=== PATIENT | female | born 1935 | race Caucasian/White ===

== ENCOUNTER → 2020-10-30 09:46 | Outpatient (BNVA) | payer MEDICARE, SELFPAY | PROVIDERS: PCP Internal Medicine; Visit Provider Internal Medicine Cardiovascular Disease | DX: I47.1 Supraventricular tachycardia (principal); I77.9 Disorder of arteries and arterioles, unspecified; R06.02 Shortness of breath | CPT/HCPCS: 93005; 99212 ==

== ENCOUNTER 2021-02-25 10:18 | Outpatient (REF) | payer MEDICARE, SELFPAY ==
[2021-02-25 12:40] LABS: Alanine Aminotransferase 14 U/L (0-31); Albumin Level 4.6 g/dL (3.5-5.0); Alkaline Phosphatase 103 U/L (39-117); Aspartate Amino Transferase 22 U/L (5-31); Bilirubin Direct 0.4 mg/dL (0.0-0.5); Cholesterol 173 mg/dL; HDL Cholesterol 95 mg/dL; LDL Cholesterol Calculated 62 mg/dl; Total Protein 7.3 g/dL (6.5-8.0); Triglycerides 80 mg/dL
[2021-02-25 13:30] LABS: Reflex LDLD? No
== END 2021-02-25 10:19 | disposition home or self-care (01) ==
LOC: HO.LNP 10:18
PROVIDERS: Visit Provider Internal Medicine
DX: E78.00 Pure hypercholesterolemia, unspecified (principal)
CPT/HCPCS: 80061; 80076

== ENCOUNTER 2021-03-28 08:43 | Outpatient (REF) | payer MEDICARE, SELFPAY ==
--- NOTE | ~2021-03-28 | CT_ITS ---
EXAMINATION: CT CHEST WITHOUT CONTRAST CLINICAL INFORMATION: Pulmonary nodule. COMPARISON: CT chest 11/14/2019, 04/20/2019 TECHNIQUE: Multidetector volumetric CT imaging of the chest was done. Axial MIP volume rendering provided. Sagittal and coronal reformatted images were obtained. This CT examination was performed using dose optimization techniques as appropriate, variously including the following: *Automated exposure control *Adjustment of mA and/or kV according to patient size (this includes techniques or standardized protocols for targeted exams where dose is matched to indication/reason for exam; i.e. extremities or head) *Use of iterative reconstruction technique DLP: 96 mGy-cm FINDINGS: DATA SME: The lungs are hyperinflated with no large consolidation seen. LUNGS: Hyperinflated lungs with multiple pulmonary nodules and tree-in-bud appearance in the right lower lobe superior segment and posterior segment right lower lobe. The largest nodule in the right upper lobe measures 5 mm on image 182/8, previously measured 5 mm on axial image 165/5, 7 mm pleural-based nodule left upper lobe axial image 231/8 is new. A 1 cm tubular density right upper lobe anterior segment image 25/4 appears stable. A 4 mm nodule right middle lobe axial image 29/4. Branching nodular pattern in the lingula, both lower lobes, likely intrabronchial debris or mucoid impaction is stable. There are tree in but didn't pattern in the left lower lobe superior segment and right upper lobe, new. MEDIASTINUM: The thyroid lobes are symmetrical and normal. The central trachea and the bronchi are widely patent. The heart size and the great vessels are normal caliber. There are coronary artery calcifications present. No pericardial effusion seen. PLEURA: There is no pleural effusion. No pleural mass or thickening. AXILLA: There are small bilateral axillary 1 cm nodules, similar to previous study. The chest wall is unremarkable. UPPER ABDOMEN: Visualized liver, spleen, pancreas, and bilateral adrenal glands are unremarkable. OSSEOUS STRUCTURES: Exaggerated thoracic kyphosis. The vertebral heights, alignment and disc heights are normal. There is mild ventral spondylosis throughout dorsal spine. No lytic process seen. CT/CT chest wo con IMPRESSION: Bilateral pulmonary nodules, tubular branching, intrabronchial debris, and few ill-defined patchy reticular interstitial changes in both lungs are again noted. The tree-in-bud branching patterns in the left lower lobe superior segment and right upper lobe appear new. No new nodules seen. Clustered nodules in the right middle lobe seen previously have resolved. Again, there is waxing and waning nodules and tree-in-bud appearance likely from ongoing inflammatory or infectious etiology. There is no large consolidation or mass. Reactionary lymph nodes in the axilla are stable. Recommend continued followup.
== END 2021-03-28 08:44 | disposition home or self-care (01) ==
LOC: HO.CT 08:43
PROVIDERS: Visit Provider Internal Medicine
DX: R91.1 Solitary pulmonary nodule (principal)
CPT/HCPCS: 71250

== ENCOUNTER 2021-07-15 14:06 | Outpatient (REF) | payer MEDICARE, SELFPAY ==
[2021-07-15 14:31] LABS: Appearance Urine CLOUDY; Color Urine YELLOW; Glucose Urine UA NEG (NEG); Leukocyte Esterase Urine 2+ (NEG); Nitrite Urine POS (NEG); Urine Blood TRACE (NEG); Urine Ketones NEG (NEG); Urine Protein 1+ MG/DL (NEG-TRACE)
[2021-07-15 15:09] LABS: Bacteria Urine 3+ /LPF; Squamous Epithelial Cell Urine TRACE /LPF; WBC Urine TNTC /HPF (0-4)
[2021-07-15 15:11] LABS: RBC Urine 0-2 /HPF (0)
== END 2021-07-15 14:07 | disposition home or self-care (01) ==
LOC: HO.LNP 14:06
PROVIDERS: Visit Provider Internal Medicine
DX: R35.1 Nocturia (principal)
CPT/HCPCS: 81001; 87086; 87088; 87186

== ENCOUNTER 2021-07-29 07:55 | Day surgery (SDC) | payer MEDICARE, SELFPAY ==
[2021-07-23 10:50] VITALS: BMI 23.8
--- NOTE | 2021-07-24 08:36 | MHC.SHP ---
Pre-Procedural Eval Section A Date of Service: 07/24/21 The patient is an INPATIENT: No The History & Physical has been completed within 30 days and I have reviewed it.: Yes Section B Chief Complaint: cataract Allergies: Allergies Allergy/AdvReac Type Severity Reaction Status Date / Time clindamycin Allergy Unknown Unknown Verified 07/23/21 10:22 FRUITS WITH PITS Allergy Unknown UNKNOWN Uncoded 07/12/20 15:28 Plan Diagnosis/Plan: Unchanged I have reviewed the history and physical and performed a pertinent physical examination on my patient. No changes have occurred unless specified.
[2021-07-29 08:01] VITALS: BP 121/56; PULSE 59; RESP 16; TEMP 36.3; O2SAT 96
[2021-07-29] MEDS: Tropicamide 1 % Ophth Sol 3 ML BTL 1 DROP EYE-RIGHT ×3 (08:27→08:34)
[2021-07-29] MEDS: Phenylephrine HCL 2.5% Oph SoL 2 ML BOTTLE 1 DROP EYE-RIGHT ×3 (08:27→08:34)
[2021-07-29] MEDS: Tetracaine HCl/PF 0.5% Oph Sol 4 ML DROPS 1 DROP EYE-RIGHT (08:27)
--- NOTE | 2021-07-29 09:12 | HO.ANESPROP2 ---
[facility] Active Problems Active Problems: All Active Problems (Updated 07/23/21 @ 10:53 by Beba La RN) SOB (shortness of breath) (Acute) Supraventricular tachycardia (Acute) Bilateral carotid artery disease (Acute) Hyperlipidemia (Acute) Past Medical History Medical History Asthma Bilateral carotid artery disease COPD (chronic obstructive pulmonary disease) COVID-19 vaccine series completed Hyperlipidemia Supraventricular tachycardia Family History Family History Father No problems noted. Mother No problems noted. Family history of problems with anesthesia: No Surgical History Surgical History H/O colonoscopy History of bladder surgery History of esophagogastroduodenoscopy (EGD) History of hip surgery Hx of cone biopsy of cervix History of Problems with Anesthesia: No Social History Social History Are you a primary manager intensive care to a significant other at home: No Do you presently have visiting nurse or other home services: No Patient Tobacco Use Status: Never used Tobacco Use of substances other than those prescribed or required for medical reasons: No Have you been hit, kicked, punched, or otherwise hurt by someone within the past year? If so, by whom?: No Are you DNR?: No Advance Directives on File: No Recently lost weight without trying: No Eating poorly because of decreased appetite: No Nutrition Risks: Surgical patient >75years Poor oral hygiene: No Meds Allergies Allergy/AdvReac Type Severity Reaction Status Date / Time clindamycin Allergy Unknown Unknown Verified 07/23/21 10:22 FRUITS WITH PITS Allergy Unknown UNKNOWN Uncoded 07/12/20 15:28 Active Medications: Current Medications Lactated Ringer's (Lr) 500 mls @ 20 mls/hr IVCONT .Q24H STEPH Povidone Iodine (Povidone Iodine 5 % Ophth Soln 30 Ml Bottle) 1 appl EYE-RIGHT PREOP PRN PRN Reason: Pre-Op Surgical Implant Prophy Home Medications Medication Instructions Recorded Confirmed Last Taken Type albuterol sulfate 90 mcg/actuation 2 inh INHALATION Q4-6H PRN 10/30/20 07/23/21 Unknown History breath activated powder inhaler aspirin 81 mg tablet,delayed 81 mg PO DAILY 10/30/20 07/23/21 Unknown History release (Adult Low Dose Aspirin) fluticasone propionate 220 2 puff INHALATION BID 10/30/20 07/23/21 Unknown History mcg/actuation HFA aerosol inhaler cholecalciferol (vitamin D3) 25 25 mcg PO DAILY 07/23/21 07/23/21 Unknown History mcg (1,000 unit) capsule (Vitamin D3) Exam Exam Date and Time: July 29, 2021 0912 Height,Weight and Vital Signs: Height 4 ft 11 in Weight 53.524 kg Last Vital Signs Temp 97.4 F 07/29/21 08:01 Pulse 59 07/29/21 08:01 Resp 16 07/29/21 08:01 BP 121/56 L 07/29/21 08:01 Pulse Ox 96 07/29/21 08:01 Airway Mallampati Class: II TM Dist: >3cm Neck ROM: Limited Assessment and Plan Assessment Anesthesia Assessment: Anesthesia Plan Discussed and Chart Reviewed Final Anesthetic Review Family History of Problems with Anesthesia: No History of Problems with Anesthesia: No NPO: Yes ASA Class: III Final Preanesthetic Review: No Changes in Pt Med Stat, Meds/Allgs Chart Reviewed, Consent Obtained/Reviewed and Anes Risks/Benef Reviewed Patient Risk: Intermediate Procedure Risk: Low Assessment/Block/Sedation in SS: Assess/Block/Sedation-SS Anesthetic Plan Anesthetic Plan: MAC: Disposition: Standard PACU
--- NOTE | 2021-07-29 09:24 | HO.PNOPHT ---
Ophthalmology Procedure Procedure Date of Service: 07/29/21 Ophthalmology Viscoelastic: Healon Duet Dual Pack Pro Ophthalmology Lenses: TECNIS [id number] (19.5) Procedure Notes: PREOPERATIVE DIAGNOSIS: Decreased visual acuity right eye secondary to cataract POSTOPERATIVE DIAGNOSIS: Same PROCEDURE: Right cataract extraction with intraocular lens insertion SURGEON: Avinash Reese M.D. ANESTHESIA: Topical/MAC ESTIMATED BLOOD LOSS: None COMPLICATIONS: None After obtaining informed consent, the patient was brought to the operating room suite and placed in the supine position. After adequate sedation per anesthesia, topical drops of Tetracaine were given to the right eye. The eye was then prepped and draped in the usual sterile fashion. The operating room microscope was then positioned over the operative eye and a lid speculum placed. A paracentesis was created. Viscoelastic was then instilled into the anterior chamber. A three plane incision was then created temporally, utilizing a 2.85 mm keratome. Capsulotomy forceps were then utilized to create a circular tear capsulotomy. Hydrodissection and hydrodelineation were carried out until adequate mobilization of the nucleus occurred. Phacoemulsification was then utilized to remove the dense central nucleus followed by removal of the cortical material utilizing the automated aspiration irrigation unit. Viscoelastic was instilled into the posterior capsular bag followed by placement of a posterior chamber intraocular lens without difficulty. The residual Viscoelastic was then removed utilizing the automated IA machine. The wound was checked and found to be watertight. The patient tolerated the procedure well and the lid speculum was removed. Intracameral injection of Vigamox 0.1 mL followed by a subtenon injection of Kenalog-40 0.2 mL were administered. The patient will be seen in the a.m.
[2021-07-29 09:45] VITALS: BP 141/51; PULSE 49; RESP 17; TEMP 36.2; O2SAT 99
== END 2021-07-29 09:59 | disposition home or self-care (01) ==
PROVIDERS: PCP Internal Medicine; Visit Provider Ophthalmology
PROC: (CPT 66985; principal; 2021-07-29 09:30)
DX: H25.11 Age-related nuclear cataract, right eye (principal); H52.4 Presbyopia; H40.013 Open angle with borderline findings, low risk, bilateral; J44.9 Chronic obstructive pulmonary disease, unspecified; I77.9 Disorder of arteries and arterioles, unspecified; K21.9 Gastro-esophageal reflux disease without esophagitis; E78.00 Pure hypercholesterolemia, unspecified; Z79.51 Long term (current) use of inhaled steroids; Z79.82 Long term (current) use of aspirin; Z79.899 Other long term (current) drug therapy
CPT/HCPCS: 66984; J3010; J3300; V2632

== ENCOUNTER 2021-08-02 10:25 | Outpatient (REF) | payer MEDICARE, SELFPAY ==
[2021-08-02 11:00] LABS: Appearance Urine CLEAR; Color Urine YELLOW; Glucose Urine UA NEG (NEG); Leukocyte Esterase Urine NEG (NEG); Nitrite Urine NEG (NEG); Specific Gravity - Urine 1.025 (1.005-1.025); Urine Blood NEG (NEG); Urine Ketones NEG (NEG); Urine Protein NEG (NEG-TRACE)
== END 2021-08-02 10:26 | disposition home or self-care (01) ==
LOC: HO.LNP 10:25
PROVIDERS: Visit Provider Internal Medicine
DX: N39.0 Urinary tract infection, site not specified (principal)
CPT/HCPCS: 81003; 87086

== ENCOUNTER 2021-08-12 08:40 | Day surgery (SDC) | payer MEDICARE, SELFPAY ==
[2021-07-23 10:55] VITALS: BMI 23.8
--- NOTE | 2021-08-07 13:21 | MHC.SHP ---
Pre-Procedural Eval Section A Date of Service: 08/07/21 The patient is an INPATIENT: No Changes since office visit: No Cold of Flu in the past 2 weeks, No New Medical Problems, No Changes in Medication and No Patient answered all questions The History & Physical has been completed within 30 days and I have reviewed it.: Yes Section B Chief Complaint: cataract Allergies: Allergies Allergy/AdvReac Type Severity Reaction Status Date / Time clindamycin Allergy Unknown Unknown Verified 07/23/21 10:22 FRUITS WITH PITS Allergy Unknown UNKNOWN Uncoded 07/12/20 15:28 Plan Diagnosis/Plan: Unchanged I have reviewed the history and physical and performed a pertinent physical examination on my patient. No changes have occurred unless specified.
--- NOTE | 2021-08-09 10:01 | P.CONAN_ITS ---
Documented by User: Samira Carrillo NP 08/09/21 10:07 HPI - Anesthesia Eval Consult details Narrative: 86yo F for Left Cataract Extraction IOL Insertion PCP cleared Right Eye 07/29/21 with MAC: Fent 50 PMFSH Active Problems Active Problems: All Active Problems (Updated 07/23/21 @ 10:53 by Beba La RN) SOB (shortness of breath) (Acute) Supraventricular tachycardia (Acute) Bilateral carotid artery disease (Acute) Hyperlipidemia (Acute) Past Medical History Medical History Asthma Bilateral carotid artery disease COPD (chronic obstructive pulmonary disease) COVID-19 vaccine series completed Hyperlipidemia Supraventricular tachycardia Family History Family History Father No problems noted. Mother No problems noted. Family history of problems with anesthesia: No Surgical History Surgical History H/O colonoscopy History of bladder surgery History of esophagogastroduodenoscopy (EGD) History of hip surgery Hx of cone biopsy of cervix History of Problems with Anesthesia: No Social History Social History Are you a primary critical care nurse practitioner to a significant other at home: No Do you presently have visiting nurse or other home services: No Patient Tobacco Use Status: Never used Tobacco Use of substances other than those prescribed or required for medical reasons: No Have you been hit, kicked, punched, or otherwise hurt by someone within the past year? If so, by whom?: No Are you DNR?: No Advance Directives on File: No Recently lost weight without trying: No Eating poorly because of decreased appetite: No Nutrition Risks: Surgical patient >75years Poor oral hygiene: No Meds Allergies Allergy/AdvReac Type Severity Reaction Status Date / Time clindamycin Allergy Unknown Unknown Verified 07/23/21 10:22 FRUITS WITH PITS Allergy Unknown UNKNOWN Uncoded 07/12/20 15:28 Home Medications Medication Instructions Recorded Confirmed Last Taken Type albuterol sulfate 90 mcg/actuation 2 inh INHALATION Q4-6H PRN 10/30/20 07/23/21 Unknown History breath activated powder inhaler aspirin 81 mg tablet,delayed 81 mg PO DAILY 10/30/20 07/23/21 Unknown History release (Adult Low Dose Aspirin) fluticasone propionate 220 2 puff INHALATION BID 10/30/20 07/23/21 Unknown History mcg/actuation HFA aerosol inhaler cholecalciferol (vitamin D3) 25 25 mcg PO DAILY 07/23/21 07/23/21 Unknown History mcg (1,000 unit) capsule (Vitamin D3) Exam Exam Date and Time: August 09, 2021 1001 Height,Weight and Vital Signs: Height 4 ft 11 in Weight 53.524 kg Narrative Narrative: EKG 10/2020 NSR @ 62 Assessment and Plan Assessment Anesthesia Assessment: Chart Reviewed Final Anesthetic Review Family History of Problems with Anesthesia: No History of Problems with Anesthesia: No Documented by User: Hunter Conteh MD 08/12/21 10:22 [facility] Past Medical History Medical History Asthma Bilateral carotid artery disease COPD (chronic obstructive pulmonary disease) COVID-19 vaccine series completed Hyperlipidemia Supraventricular tachycardia Family History Family History Father No problems noted. Mother No problems noted. Surgical History Surgical History H/O colonoscopy History of bladder surgery History of esophagogastroduodenoscopy (EGD) History of hip surgery Hx of cone biopsy of cervix Social History Social History Are you a primary critical care nurse practitioner to a significant other at home: No Do you presently have visiting nurse or other home services: No Patient Tobacco Use Status: Never used Tobacco Use of substances other than those prescribed or required for medical reasons: No Have you been hit, kicked, punched, or otherwise hurt by someone within the past year? If so, by whom?: No Are you DNR?: No Advance Directives on File: No Recently lost weight without trying: No Eating poorly because of decreased appetite: No Nutrition Risks: Surgical patient >75years Poor oral hygiene: No Meds Allergies Allergy/AdvReac Type Severity Reaction Status Date / Time clindamycin Allergy Unknown Unknown Verified 07/23/21 10:22 FRUITS WITH PITS Allergy Unknown UNKNOWN Uncoded 07/12/20 15:28 Home Medications Medication Instructions Recorded Confirmed Last Taken Type albuterol sulfate 90 mcg/actuation 2 inh INHALATION Q4-6H PRN 10/30/20 07/23/21 Unknown History breath activated powder inhaler aspirin 81 mg tablet,delayed 81 mg PO DAILY 10/30/20 07/23/21 Unknown History release (Adult Low Dose Aspirin) fluticasone propionate 220 2 puff INHALATION BID 10/30/20 07/23/21 Unknown History mcg/actuation HFA aerosol inhaler cholecalciferol (vitamin D3) 25 25 mcg PO DAILY 07/23/21 07/23/21 Unknown History mcg (1,000 unit) capsule (Vitamin D3) Exam Airway Mallampati Class: II TM Dist: >3cm Neck ROM: Full Loose/Missing/Broken Teeth: Yes Heart: [id number] Lungs: cta b/l Assessment and Plan Final Anesthetic Review NPO: Yes ASA Class: III Final Preanesthetic Review: No Changes in Pt Med Stat, Meds/Allgs Chart Reviewed, Consent Obtained/Reviewed and Anes Risks/Benef Reviewed Patient Risk: Intermediate Procedure Risk: Low Assessment/Block/Sedation in SS: Assess/Block/Sedation-SS Anesthetic Plan Anesthetic Plan: MAC: and Agree w/ Assess. and Plan Disposition: Standard PACU
[2021-08-12 10:28] VITALS: BP 134/62; PULSE 61; RESP 18; TEMP 36.4; O2SAT 96
--- NOTE | 2021-08-12 10:42 | HO.PNOPHT ---
Ophthalmology Procedure Procedure Date of Service: 08/12/21 Ophthalmology Viscoelastic: Healon Duet Dual Pack Pro Ophthalmology Lenses: TECNIS [id number] (19.5) Procedure Notes: PREOPERATIVE DIAGNOSIS: Decreased visual acuity left eye secondary to cataract POSTOPERATIVE DIAGNOSIS: Same PROCEDURE: Left cataract extraction with intraocular lens insertion SURGEON: Avinash Reese M.D. ANESTHESIA: Topical/MAC ESTIMATED BLOOD LOSS: None COMPLICATIONS: None After obtaining informed consent, the patient was brought to the operation room suite and placed in the supine position. After adequate sedation per anesthesia, topical drops of Tetracaine were given to the left eye. The eye was then prepped and draped in the usual sterile fashion. The operating room microscope was then positioned over the operative eye and a lid speculum placed. A paracentesis was created. Viscoelastic was then instilled into the anterior chamber. A three plane incision was then created temporally, utilizing a 2.85 mm keratome. Capsulotomy forceps were then utilized to create a circular tear capsulotomy. Hydrodissection and hydrodelineation were carried out until adequate mobilization of the nucleus occurred. Phacoemulsification was then utilized to remove the dense central nucleus followed by removal of the cortical material utilizing the automated aspiration irrigation unit. Viscoat elastic was instilled into the posterior capsular bag followed by placement of a posterior chamber intraocular lens without difficulty. The residual Viscoat elastic was then removed utilizing the automated IA machine. The wound was check and found to be watertight. The patient tolerated the procedure well and the lid speculum was removed. Intracameral injection of Vigamox 0.1 mL followed by a subtenon injection of Kenalog-40 0.2 mL were administered. The patient will be seen in the a.m.
[2021-08-12 11:07] VITALS: BP 143/78; PULSE 55; RESP 16; TEMP 36.7; O2SAT 99
== END 2021-08-12 11:30 | disposition home or self-care (01) ==
PROVIDERS: PCP Internal Medicine; Visit Provider Ophthalmology
PROC: (CPT 66985; principal; 2021-08-12 10:50)
DX: H25.12 Age-related nuclear cataract, left eye (principal); H40.013 Open angle with borderline findings, low risk, bilateral; H52.4 Presbyopia; I65.21 Occlusion and stenosis of right carotid artery; J44.9 Chronic obstructive pulmonary disease, unspecified; E78.5 Hyperlipidemia, unspecified; Z79.82 Long term (current) use of aspirin; Z79.51 Long term (current) use of inhaled steroids; Z79.899 Other long term (current) drug therapy; Z88.1 Allergy status to other antibiotic agents
CPT/HCPCS: 66984; J2250; J3300; V2632

== ENCOUNTER 2021-08-27 10:29 | Outpatient (REF) | payer MEDICARE, SELFPAY ==
[2021-08-27 10:33] LABS: MANUAL DIFF FLAG NO
[2021-08-27 11:00] LABS: Basophils Percent Auto 0.6 % (0-2); Eosinophils Absolute Auto 0.1 X10*3/uL (0.0-0.4); Eosinophils Percent Auto 2.1 % (0-4); Hematocrit 44.9 % (37.0-47.0); Imm Gran Abs Auto 0.02 X10*3/uL (0.00-0.03); Imm Gran Pct Auto 0.3 % (0.0-0.4); Lymphocytes Absolute Auto 1.8 X10*3/uL (1.2-4.9); Lymphocytes Percent Auto 26.4 % (20-40); Mean Corpuscular HGB Conc 33.4 g/dl (31.0-35.0); Mean Corpuscular Hemoglobin 32.3 pg (27.0-33.0); Mean Corpuscular Volume 96.6 fL (80.0-98.0); Mean Platelet Volume 9.7 fL (9.4-12.3); Monocytes Absolute Auto 0.4 X10*3/uL (0.1-1.2); Monocytes Percent Auto 6.3 % (2-11); Neutrophils Absolute Auto 4.26 x10*3/uL (2.0-8.3); Neutrophils Percent Auto 64.3 % (45-73); Platelet Count 225 X10*3/uL (160-400); Red Blood Count 4.65 X10*6/uL (4.20-5.50); Red Cell Distribution Width 13.8 % (11.0-16.0); White Blood Count 6.6 X10*3/uL (4.8-10.8)
[2021-08-27 11:24] LABS: Appearance Urine CLEAR; Color Urine YELLOW; Glucose Urine UA NEG (NEG); Leukocyte Esterase Urine NEG (NEG); Nitrite Urine NEG (NEG); Urine Blood NEG (NEG); Urine Ketones NEG (NEG); Urine Protein NEG (NEG-TRACE)
[2021-08-27 11:44] LABS: Alanine Aminotransferase 16 U/L (0-31); Albumin Level 4.4 g/dL (3.5-5.0); Alkaline Phosphatase 87 U/L (39-117); Anion Gap 12 (12-20); Aspartate Amino Transferase 22 U/L (5-31); Bilirubin Total 0.9 mg/dL (0.0-1.0); Blood Urea Nitrogen 10 mg/dL (9-16); Carbon Dioxide 28 mmol/L (22-29); Chloride 101 mmol/L (96-108); Cholesterol 164 mg/dL; Estimated Glomerular Filt Rate > 60; Glucose Fasting 94 mg/dL (60-99); HDL Cholesterol 92 mg/dL; LDL Cholesterol Calculated 60 mg/dl; Potassium 4.2 mmol/L (3.3-5.1); Sodium 137 mmol/L (135-145); Total Protein 7.1 g/dL (6.5-8.0); Triglycerides 62 mg/dL
[2021-08-27 11:52] LABS: Reflex LDLD? No
== END 2021-08-27 10:30 | disposition home or self-care (01) ==
LOC: HO.LNP 10:29
PROVIDERS: Visit Provider Internal Medicine
DX: Z00.00 Encounter for general adult medical examination without abnormal findings (principal); E78.00 Pure hypercholesterolemia, unspecified
CPT/HCPCS: 80053; 80061; 81003; 85025

== ENCOUNTER 2021-09-23 14:23 | Outpatient (REF) | payer MEDICARE, SELFPAY ==
--- NOTE | ~2021-09-23 | CT_ITS ---
EXAMINATION: CT SOFT TISSUE NECK WITH CONTRAST CLINICAL INFORMATION: Localized enlarged lymph nodes. COMPARISON: Multiple prior chest CTs, most recent dated 03/28/2021. TECHNIQUE: Following the intravenous administration of 60 mL of Omnipaque 350 contrast, helical imaging was performed in the axial plane with generation of coronal and sagittal reformatted images. This CT examination was performed using dose optimization techniques as appropriate, variously including the following: *Automated exposure control *Adjustment of mA and/or kV according to patient size (this includes techniques or standardized protocols for targeted exams where dose is matched to indication/reason for exam; i.e. extremities or head) *Use of iterative reconstruction technique DLP: 242 mGy-cm FINDINGS: No contour abnormality or pathologic enhancement is seen within the pharyngeal mucosal space or visualized oral cavity. The laryngeal structures appear normal. Assessment is somewhat limited due to beam hardening artifacts from dental amalgam. There are bilobed peripherally enhancing retention cysts in the left vallecula measuring up to 1.5 cm in diameter. The left parotid gland appears normal. There is partial fatty replacement and atrophic change in the right parotid gland. There is asymmetric nodularity and partial fatty replacement of the submandibular glands, worse on the left side. No surrounding soft tissue inflammatory changes are seen. A 0.6 cm low-density nodule is noted in the right thyroid lobe. The airway is normally maintained. The carotid sheath vasculature opacifies normally with significant atherosclerotic wall calcifications at the origin of the right internal carotid artery resulting in a severe 85% stenosis. The internal carotid arteries have a retropharyngeal course proximally. No pathologically enlarged cervical lymph nodes are visible. The visualized mediastinum appears normal. The imaged axillae are unremarkable. No acute osseous abnormality is seen. Moderate lower cervical spondylosis noted with multilevel hypertrophic facet arthropathy and bony demineralization. There are multiple tubular densities, some of which have a branching appearance, in the lungs bilaterally. Scattered tree-in-bud centrilobular nodular densities present, as well. There is a focal area of mixed reticulonodular and ground-glass density in the right upper lobe, new since the prior chest CT study. No pleural effusions. Moderate leftward nasal septal deviation with nasal septal spurring distorting the left inferior turbinate. The imaged paranasal sinuses and mastoid air cells are clear. The TMJs are normal. Status post lens extractions bilaterally. The visualized portions of the brain demonstrate no acute abnormality. CT/CT soft tissue neck w con IMPRESSION: No cervical adenopathy or acute process. There is partial fatty replacement and nodularity in the right parotid gland and asymmetrically affecting both submandibular glands which may be due to the sequela of chronic inflammatory disease. Significant 85% stenosis due to atherosclerotic disease at the origin of the right internal carotid artery. Bilobed peripherally enhancing retention cyst in the left vallecula along the lingual surface of the epiglottis. Small 0.5 cm right thyroid lobe nodule. Multiple tubular and branching centrilobular nodular densities in the lungs with focal reticulonodular and ground-glass density in the right upper lobe which is new compared to the prior study. Although findings may be due to an inflammatory/infectious disease process, underlying malignancy cannot be ruled out. Pulmonary medicine consultation is recommended for potential tissue diagnosis. Chest CT findings were also reviewed by Dr. Sarkis Fontenot, thoracic radiologist.
[2021-09-23] MEDS: iohexoL 350 MG/ML 100 ML INFUS..BTL 85 ML IV (15:14)
== END 2021-09-23 14:24 | disposition home or self-care (01) ==
LOC: HO.CT 14:23
PROVIDERS: PCP Internal Medicine; Visit Provider Internal Medicine
DX: R59.0 Localized enlarged lymph nodes (principal)
CPT/HCPCS: 70491; Q9967

== ENCOUNTER → 2021-10-29 13:55 | Outpatient (BNVA) | payer MEDICARE, SELFPAY | PROVIDERS: PCP Internal Medicine; Referring Provider Internal Medicine; Visit Provider Internal Medicine Cardiovascular Disease | DX: I47.1 Supraventricular tachycardia (principal); I77.9 Disorder of arteries and arterioles, unspecified | CPT/HCPCS: 93005; 99212 ==

== ENCOUNTER 2022-02-12 09:50 | Outpatient (REF) | payer MEDICARE, SELFPAY ==
--- NOTE | ~2022-02-12 | CT_ITS ---
EXAMINATION: CT CHEST WITHOUT CONTRAST CLINICAL INFORMATION: Follow up pulmonary nodules. COMPARISON: Most recent prior CT of the chest done on 03/28/2021. TECHNIQUE: Multidetector volumetric CT imaging of the chest was done. Axial MIP volume rendering provided. Sagittal and coronal reformatted images were obtained. This CT examination was performed using dose optimization techniques as appropriate, variously including the following: *Automated exposure control *Adjustment of mA and/or kV according to patient size (this includes techniques or standardized protocols for targeted exams where dose is matched to indication/reason for exam; i.e. extremities or head) *Use of iterative reconstruction technique DLP: 118.9 mGy-cm FINDINGS: FLOUR TESTER: Hyperinflated lung field is present bilaterally. LUNGS: Interval development of dense airspace consolidation is noted at the peripheral part of the lateral segment of the right middle lobe and similar-appearing dense peripheral pleural-based airspace disease at the anteroinferior medial aspect of the right upper lobe, and inferior segment of the lingula, likely represent inflammatory/infectious process. Interval progression of peribronchiolar tree-in-bud appearance and subtle peripheral airspace disease is also noted at the superior segment of left lower lobe of the lung, consistent with progressive infectious, inflammatory process. Previously documented multilobar tree-in-bud appearance, bronchial thickening, mucous plugging as well as multiple noncalcified peribronchiolar/central nodules appear stable. The tracheobronchial tree is patent. MEDIASTINUM: There are no pathologically enlarged mediastinal and/or hilar lymphadenopathy identified on this nonenhanced study. Diffuse atherosclerotic disease of the aorta and is branches including significant coronary arterial calcifications are present. No significant change. PLEURA: There is no pleural effusion. No pleural mass or thickening. AXILLA: No lymphadenopathy. UPPER ABDOMEN: Unremarkable. OSSEOUS STRUCTURES: Marked diffuse osteopenia and multilevel degenerative spondylosis related changes are noted. Increased thoracic kyphosis. No significant change. CT/CT chest wo con IMPRESSION: 1. Compared to most recent prior study dated 03/28/2021, interval development of multilobar dense airspace consolidation is noted involving the right middle lobe, right upper lobe as well as the left upper lobe, likely represent infectious, inflammatory process/multilobar pneumonia. 2. Interval progression of peribronchiolar tree-in-bud appearance and subtle peripheral airspace disease at superior segment of left lower lobe of the lung, also consistent with progressive infectious, inflammatory process. 3. Previously documented multilobar tree-in-bud appearance, peribronchiolar thickening, mucous plugging as well as multiple noncalcified peribronchiolar/central lung parenchymal nodules appear stable. These likely represent infectious, inflammatory process. 4. Diffuse atherosclerotic disease of the aorta and significant atherosclerotic coronary arterial disease, similar to prior study. 5. Marked diffuse osteopenia and multilevel degenerative spondylosis and increased midthoracic kyphosis, unchanged. Fleischner guidelines were followed.
== END 2022-02-12 09:51 | disposition home or self-care (01) ==
LOC: HO.CT 09:50
PROVIDERS: PCP Internal Medicine; Visit Provider Internal Medicine
DX: R91.1 Solitary pulmonary nodule (principal)
CPT/HCPCS: 71250

== ENCOUNTER 2022-04-01 10:57 | Outpatient (REF) | payer MEDICARE, SELFPAY ==
[2022-04-01 11:39] LABS: Alanine Aminotransferase 12 U/L (0-31); Albumin Level 4.6 g/dL (3.5-5.0); Alkaline Phosphatase 103 U/L (39-117); Aspartate Amino Transferase 22 U/L (5-31); Bilirubin Direct 0.4 mg/dL (0.0-0.5); Bilirubin Total 0.9 mg/dL (0.0-1.0); Cholesterol 167 mg/dL; HDL Cholesterol 92 mg/dL; LDL Cholesterol Calculated 59 mg/dl; Total Protein 7.2 g/dL (6.5-8.0); Triglycerides 81 mg/dL
[2022-04-01 12:58] LABS: Reflex LDLD? No
== END 2022-04-01 10:58 | disposition home or self-care (01) ==
LOC: HO.LNP 10:57
PROVIDERS: PCP Internal Medicine; Visit Provider Internal Medicine
DX: E78.00 Pure hypercholesterolemia, unspecified (principal)
CPT/HCPCS: 80061; 80076

== ENCOUNTER 2022-09-02 10:46 | Outpatient (REF) | payer MEDICARE, SELFPAY ==
[2022-09-02 10:50] LABS: MANUAL DIFF FLAG NO
[2022-09-02 12:04] LABS: Basophils Absolute Auto 0.1 X10*3/uL (0.0-0.2); Basophils Percent Auto 0.9 % (0-2); Eosinophils Absolute Auto 0.1 X10*3/uL (0.0-0.4); Eosinophils Percent Auto 2.4 % (0-4); Hemoglobin 14.7 g/dl (12.0-16.0); Imm Gran Abs Auto 0.01 X10*3/uL (0.00-0.03); Imm Gran Pct Auto 0.2 % (0.0-0.4); Lymphocytes Absolute Auto 2.1 X10*3/uL (1.2-4.9); Lymphocytes Percent Auto 35.8 % (20-40); Mean Corpuscular HGB Conc 32.7 g/dl (31.0-35.0); Mean Corpuscular Hemoglobin 31.7 pg (27.0-33.0); Mean Corpuscular Volume 97.2 fL (80.0-98.0); Mean Platelet Volume 9.7 fL (9.4-12.3); Monocytes Absolute Auto 0.4 X10*3/uL (0.1-1.2); Monocytes Percent Auto 6.7 % (2-11); Neutrophils Absolute Auto 3.1 x10*3/uL (2.0-8.3); Platelet Count 213 X10*3/uL (160-400); Red Blood Count 4.63 X10*6/uL (4.20-5.50); Red Cell Distribution Width 13.8 % (11.0-16.0); White Blood Count 5.8 X10*3/uL (4.8-10.8)
[2022-09-02 12:12] LABS: Appearance Urine Clear; Color Urine Yellow; Glucose Urine UA Negative (Negative); Leukocyte Esterase Urine Moderate (2+) (Negative); Nitrite Urine Negative (Negative); Specific Gravity - Urine 1.015 (1.005-1.025); UMIC TRIGGER UA YES; Urine Blood Trace (Negative); Urine Ketones Negative (Negative); Urine Protein Negative (Neg-Trace)
[2022-09-02 12:21] LABS: Bacteria Urine None Seen (None Seen); Hyaline Casts Urine 0-2 /LPF (0-2); WBC Urine 21-50 /HPF (0-5)
[2022-09-02 12:51] LABS: Alanine Aminotransferase 15 U/L (0-31); Albumin Level 4.5 g/dL (3.5-5.0); Alkaline Phosphatase 106 U/L (39-117); Anion Gap 16 (12-20); Aspartate Amino Transferase 23 U/L (5-31); Blood Urea Nitrogen 11 mg/dL (9-16); Calcium 9.8 mg/dL (8.4-10.2); Carbon Dioxide 23 mmol/L (22-29); Chloride 103 mmol/L (96-108); Cholesterol 161 mg/dL; Estimated Glomerular Filt Rate > 60; Glucose Fasting 90 mg/dL (60-99); HDL Cholesterol 86 mg/dL; LDL Cholesterol Calculated 59 mg/dl; Potassium 4.2 mmol/L (3.3-5.1); Sodium 138 mmol/L (135-145); Total Protein 7.2 g/dL (6.5-8.0); Triglycerides 84 mg/dL
== END 2022-09-02 10:47 | disposition home or self-care (01) ==
LOC: HO.LNP 10:46
PROVIDERS: Visit Provider Internal Medicine
DX: Z00.00 Encounter for general adult medical examination without abnormal findings (principal); E78.00 Pure hypercholesterolemia, unspecified
CPT/HCPCS: 80053; 80061; 81001; 85025

== ENCOUNTER 2022-09-11 15:57 | Outpatient (REF) | payer MEDICARE, SELFPAY | END 2022-09-11 15:58 | disposition home or self-care (01) | LOC: HO.LNP 15:57 | PROVIDERS: Visit Provider Internal Medicine | DX: R31.9 Hematuria, unspecified (principal) | CPT/HCPCS: 87086 ==

== ENCOUNTER → 2022-11-04 13:42 | Outpatient (BNVA) | payer MEDICARE, SELFPAY | PROVIDERS: PCP Internal Medicine; Referring Provider Internal Medicine; Visit Provider Internal Medicine Cardiovascular Disease | DX: I47.1 Supraventricular tachycardia (principal); I77.9 Disorder of arteries and arterioles, unspecified; Z79.82 Long term (current) use of aspirin; Z79.899 Other long term (current) drug therapy | CPT/HCPCS: 93005; 99212 ==

== ENCOUNTER 2022-11-07 10:40 | Outpatient (REF) | payer MEDICARE, SELFPAY ==
[2022-11-07 11:11] LABS: Appearance Urine Clear; Color Urine Yellow; Glucose Urine UA Negative (Negative); Leukocyte Esterase Urine Trace (Negative); Nitrite Urine Negative (Negative); UMIC TRIGGER UACC YES; Urine Blood Negative (Negative); Urine Ketones Negative (Negative); Urine Protein Negative (Neg-Trace)
[2022-11-07 11:14] LABS: Bacteria Urine None Seen (None Seen); Hyaline Casts Urine 0-2 /LPF (0-2); RBC Urine 0-2 /HPF (0-2); Squamous Epithelial Cell Urine 0-2 /HPF (0-2); WBC Urine 0-5 /HPF (0-5)
== END 2022-11-07 10:41 | disposition home or self-care (01) ==
LOC: HO.LNP 10:40
PROVIDERS: PCP Internal Medicine; Visit Provider Internal Medicine
DX: R31.9 Hematuria, unspecified (principal)
CPT/HCPCS: 81001

== ENCOUNTER 2022-12-01 12:51 | Outpatient (REF) | payer MEDICARE, SELFPAY ==
--- NOTE | ~2022-12-01 | US_ITS ---
EXAMINATION: US EXTRACRANIAL CAROTID DUPLEX, BILATERAL CLINICAL INFORMATION: Disorder of arteries and arterioles, unspecified. COMPARISON: 11/08/2019 TECHNIQUE: Real-time ultrasound and Doppler techniques (integrating B-mode 2-D vascular images, Doppler spectral analysis and color-flow Doppler imaging) were utilized to interrogate the extracranial carotid arteries, the vertebral arteries and proximal subclavian arteries bilaterally. The degree of stenosis is determined by criteria similar to NASCET. FINDINGS: RIGHT SIDE: 1. There is no atherosclerotic plaque seen in the bifurcation/proximal ICA region. 2. The common carotid artery PSV proximally is 77 cm/s and distally 81 cm/s. 3. The proximal internal carotid artery velocities are 108 cm/s systolic and 20 cm/s diastolic. 4. The proximal external carotid artery PSV is 76 cm/s. 5. The vertebral artery shows antegrade flow. 6. The subclavian artery waveforms are normal. LEFT SIDE: 1. There is no atherosclerotic plaque seen in the bifurcation/proximal ICA region. 2. The common carotid artery PSV proximally is 59 cm/s and distally 65 cm/s. 3. The proximal internal carotid artery velocities are 96 cm/s systolic and 33 cm/s diastolic. 4. The proximal external carotid artery PSV is 62 cm/s. 5. The vertebral artery shows antegrade flow. 6. The subclavian artery waveforms are normal. US/US carotid duplex BI IMPRESSION: 1. RIGHT: Normal right internal carotid artery without atherosclerotic plaque or hemodynamically significant stenosis. 2. LEFT: Normal left internal carotid artery without atherosclerotic plaque or hemodynamically significant stenosis. 3. No interval change when compared to 11/08/2019 study.
== END 2022-12-01 12:52 | disposition home or self-care (01) ==
LOC: HO.US 12:51
PROVIDERS: PCP Internal Medicine; Visit Provider Internal Medicine Cardiovascular Disease
DX: I77.9 Disorder of arteries and arterioles, unspecified (principal)
CPT/HCPCS: 93880

== ENCOUNTER 2023-03-06 10:31 | Outpatient (REF) | payer MEDICARE, SELFPAY ==
[2023-03-06 11:04] LABS: Alanine Aminotransferase 10 U/L (0-31); Albumin Level 4.3 g/dL (3.5-5.0); Alkaline Phosphatase 103 U/L (39-117); Aspartate Amino Transferase 19 U/L (5-31); Bilirubin Direct 0.3 mg/dL (0.0-0.5); Bilirubin Total 1.1 mg/dL (0.0-1.0); Cholesterol 163 mg/dL; HDL Cholesterol 85 mg/dL; LDL Cholesterol Calculated 64 mg/dl; Total Protein 6.8 g/dL (6.5-8.0); Triglycerides 74 mg/dL
[2023-03-06 11:55] LABS: Reflex LDLD? No
== END 2023-03-06 10:32 | disposition home or self-care (01) ==
LOC: HO.LNP 10:31
PROVIDERS: Visit Provider Internal Medicine
DX: E78.00 Pure hypercholesterolemia, unspecified (principal)
CPT/HCPCS: 80061; 80076

== ENCOUNTER 2023-03-17 09:46 | Outpatient (REF) | payer MEDICARE, SELFPAY ==
--- NOTE | ~2023-03-17 | CT_ITS ---
EXAMINATION: CT CHEST WITHOUT CONTRAST CLINICAL INFORMATION: Pulmonary mycobacterial infection. COMPARISON: CT chest 02/12/2022. TECHNIQUE: Multidetector volumetric CT imaging of the chest was done. Axial MIP volume rendering provided. Sagittal and coronal reformatted images were obtained. This CT examination was performed using dose optimization techniques as appropriate, variously including the following: *Automated exposure control *Adjustment of mA and/or kV according to patient size (this includes techniques or standardized protocols for targeted exams where dose is matched to indication/reason for exam; i.e. extremities or head) *Use of iterative reconstruction technique DLP: 74 mGy-cm FINDINGS: MATH SPECIALIST: Well-expanded lungs are clear. LUNGS: The lungs are well-expanded without acute pneumonic process. There are multiple pulmonary nodules in addition to mucous plugging and branching tree pattern in both upper lobes. The pulmonary nodules measure 6 mm image 18/4, a slightly more linear nodule probably intrabronchial measuring 8 mm on axial image 23/4, centrally in left upper lobe measuring 1.5 cm and more on sagittal image 23/7, 5 mm nodule left upper lobe posteriorly image 18/4. The mucous plugging and branching pattern is also seen in both lower lobes. MEDIASTINUM: Central trachea and the bronchi are widely patent. The thyroid lobes are symmetrical and normal. No abnormal size mediastinal or hilar lymph nodes seen. The heart size and the great vessels are normal caliber. No pericardial effusion seen. CORONARY ARTERY CALCIFICATION: There are dense coronary artery calcifications present. PLEURA: There is no pleural effusion, thickening or calcified plaques. AXILLA: No lymphadenopathy. UPPER ABDOMEN: Visualized liver, spleen, pancreas and bilateral adrenal glands are unremarkable. OSSEOUS STRUCTURES: No aggressive lytic or sclerotic process seen. There is moderate spondylosis mid and lower dorsal spine. CT/CT chest wo IV con IMPRESSION: 1. Multiple bilateral pulmonary nodules in addition to mucous plugging and branching tree-in-bud pattern in both upper and lower lobes. These findings are essentially unchanged to last exam 02/12/2022. 2. No abnormal mediastinal or axillary lymph nodes seen. 3. There are dense coronary artery calcifications. Fleischner guidelines were followed.
== END 2023-03-17 09:47 | disposition home or self-care (01) ==
LOC: HO.CT 09:46
PROVIDERS: PCP Internal Medicine; Visit Provider Internal Medicine
DX: A31.0 Pulmonary mycobacterial infection (principal)
CPT/HCPCS: 71250

== ENCOUNTER 2023-09-08 11:44 | Outpatient (REF) | payer MEDICARE, SELFPAY ==
[2023-09-08 11:48] LABS: MANUAL DIFF FLAG NO
[2023-09-08 12:15] LABS: Appearance Urine Cloudy; Color Urine Yellow; Glucose Urine UA Negative (Negative); Leukocyte Esterase Urine Moderate (2+) (Negative); Nitrite Urine Positive (Negative); PH 7.5 (5.0-9.0); Specific Gravity - Urine 1.015 (1.005-1.025); UMIC TRIGGER UACC YES; Urine Blood Negative (Negative); Urine Ketones Negative (Negative); Urine Protein Negative (Neg-Trace)
[2023-09-08 12:18] LABS: Basophils Absolute Auto 0.1 X10*3/uL (0.0-0.2); Basophils Percent Auto 0.9 % (0-2); Eosinophils Absolute Auto 0.2 X10*3/uL (0.0-0.4); Eosinophils Percent Auto 2.5 % (0-4); Hemoglobin 15.6 g/dl (12.0-16.0); Imm Gran Abs Auto 0.03 X10*3/uL (0.00-0.03); Imm Gran Pct Auto 0.5 % (0.0-0.4); Lymphocytes Absolute Auto 2.4 X10*3/uL (1.2-4.9); Lymphocytes Percent Auto 36.7 % (20-40); Mean Corpuscular HGB Conc 32.5 g/dl (31.0-35.0); Mean Corpuscular Hemoglobin 31.7 pg (27.0-33.0); Mean Corpuscular Volume 97.6 fL (80.0-98.0); Mean Platelet Volume 10.3 fL (9.4-12.3); Monocytes Absolute Auto 0.4 X10*3/uL (0.1-1.2); Monocytes Percent Auto 5.6 % (2-11); Neutrophils Absolute Auto 3.5 x10*3/uL (2.0-8.3); Neutrophils Percent Auto 53.8 % (45-73); Platelet Count 218 X10*3/uL (160-400); Red Blood Count 4.92 X10*6/uL (4.20-5.50); Red Cell Distribution Width 14.4 % (11.0-16.0); White Blood Count 6.4 X10*3/uL (4.8-10.8)
[2023-09-08 12:19] LABS: Bacteria Urine 4+ (None Seen); Hyaline Casts Urine 0-2 /LPF (0-2); Squamous Epithelial Cell Urine 0-2 /HPF (0-2); UACC Culture Trigger YES; WBC Urine >50 /HPF (0-5)
[2023-09-08 12:26] LABS: Alanine Aminotransferase 12 U/L (0-31); Albumin Level 4.6 g/dL (3.5-5.0); Alkaline Phosphatase 107 U/L (39-117); Anion Gap 13 (12-20); Aspartate Amino Transferase 25 U/L (5-31); Bilirubin Total 0.9 mg/dL (0.0-1.0); Blood Urea Nitrogen 9 mg/dL (9-16); Calcium 10.3 mg/dL (8.4-10.2); Carbon Dioxide 26 mmol/L (22-29); Chloride 102 mmol/L (96-108); Cholesterol 165 mg/dL (<200); Estimated Glomerular Filt Rate > 60; Glucose Fasting 98 mg/dL (60-99); HDL Cholesterol 88 mg/dL (>40); LDL Cholesterol Calculated 62 mg/dL (<100); Potassium 4.1 mmol/L (3.3-5.1); Sodium 137 mmol/L (135-145); Total Protein 7.8 g/dL (6.5-8.0); Triglycerides 77 mg/dL (<150)
== END 2023-09-08 11:45 | disposition home or self-care (01) ==
LOC: HO.LNP 11:44
PROVIDERS: Visit Provider Internal Medicine
DX: E78.00 Pure hypercholesterolemia, unspecified (principal); R82.90 Unspecified abnormal findings in urine
CPT/HCPCS: 80053; 80061; 81001; 81003; 85025; 87086; 87088; 87186

== ENCOUNTER 2023-09-28 18:37 | Emergency (ER) | payer MEDICARE, SELFPAY ==
--- NOTE | ~2023-09-28 | XR_ITS ---
EXAMINATION: XR CHEST CLINICAL INFORMATION: Shortness of breath. COMPARISON: CT chest dated 03/17/2023; chest radiographs dated 02/08/2019. TECHNIQUE: Frontal view of the chest was obtained. FINDINGS: No significant abnormality is noted involving the heart, lungs, mediastinum, bony thorax or soft tissues. There is a stable focus of minimal scar/subsegmental atelectasis seen laterally within the lower right lung. XR/XR chest 1V IMPRESSION: No active cardiopulmonary disease.
--- NOTE | 2023-09-28 19:04 | ECG_ITS ---
Test Reason : TACHYCARDIA Blood Pressure : / mmHG Vent. Rate : 133 BPM Atrial Rate : 000 BPM P-R Int : 000 ms QRS Dur : 108 ms QT Int : 312 ms P-R-T Axes : 000 095 -43 degrees QTc Int : 464 ms Supraventricular tachycardia Right bundle branch block T wave abnormality, consider inferior ischemia Abnormal ECG When compared with ECG of 04-JUN-2017 12:58, Vent. rate has increased BY 79 BPM Right bundle branch block is now Present Referred By: Vijaya Galdamez Electronically Signed By:NAOMI ALVARADO
[2023-09-28 19:06] VITALS: BP 138/96; PULSE 106; O2SAT 93; BMI 19.5
[2023-09-28 19:12] VITALS: BP 134/87; PULSE 137; RESP 24; TEMP 36.9; O2SAT 95
[2023-09-28 19:29] LABS: MANUAL DIFF FLAG NO
[2023-09-28 19:31] LABS: Basophils Percent Auto 0.4 % (0-2); Eosinophils Absolute Auto 0.1 X10*3/uL (0.0-0.4); Eosinophils Percent Auto 0.7 % (0-4); Hematocrit 46.3 % (37.0-47.0); Hemoglobin 15.5 g/dl (12.0-16.0); Imm Gran Abs Auto 0.02 X10*3/uL (0.00-0.03); Imm Gran Pct Auto 0.3 % (0.0-0.4); Lymphocytes Absolute Auto 0.8 X10*3/uL (1.2-4.9); Lymphocytes Percent Auto 11.3 % (20-40); Mean Corpuscular HGB Conc 33.5 g/dl (31.0-35.0); Mean Corpuscular Hemoglobin 31.5 pg (27.0-33.0); Mean Corpuscular Volume 94.1 fL (80.0-98.0); Mean Platelet Volume 9.6 fL (9.4-12.3); Monocytes Absolute Auto 0.5 X10*3/uL (0.1-1.2); Monocytes Percent Auto 7.3 % (2-11); Neutrophils Absolute Auto 5.4 x10*3/uL (2.0-8.3); Platelet Count 181 X10*3/uL (160-400); Red Blood Count 4.92 X10*6/uL (4.20-5.50); Red Cell Distribution Width 13.8 % (11.0-16.0); White Blood Count 6.7 X10*3/uL (4.8-10.8)
[2023-09-28 19:33] LABS: VBG Base Excess -0.3 mmol/L; VBG HCO3 23 mmol/L (22-26); VBG pCO2 34 mmHg; VBG pH 7.43 (7.32-7.43); VBG pO2 48 mmHg
[2023-09-28] MEDS: dilTIAZem HCL 50 MG/10 ML VIAL 10 MG IVPUSH (19:33)
--- NOTE | 2023-09-28 19:34 | ED_ITS ---
HPI - Weakness General Chief complaint: Weakness Stated complaint: UNABLE TO WALK Time Seen by Provider: 09/28/23 18:46 Source: patient and EMS Mode of arrival: EMS Limitations: no limitations History of Present Illness HPI Narrative: Patient is an 88-year-old female who presents to the emergency department for evaluation by EMS. She states that she has been feeling progressively weak for the past 3 days. She has been using her walker around the home but despite this continues to feel weak. EMS had reported a fall this morning, she reports a near fall, but was able to stabilize herself with her walker. She also states that she has been feeling increasingly more short of breath for the past 3 days, though she states this is not uncommon as she has COPD. She does not use any oxygen at baseline. She does report a mild increase in her cough but denies change in her sputum production. She denies fevers, chills, dizziness, neck pain, chest pain, nausea vomiting, abdominal pain, numbness or tingling of the extremities. She denies any known sick contacts. Related Data Home Medications Medication Instructions Recorded Confirmed albuterol sulfate 90 mcg/actuation 2 inh inhalation Q4-6H PRN Wheezing 10/30/20 09/29/23 breath activated powder inhaler aspirin 81 mg tablet,delayed 81 mg PO DAILY 10/30/20 09/29/23 release (Adult Low Dose Aspirin) fluticasone propionate 220 2 puff inhalation BID 10/30/20 09/29/23 mcg/actuation HFA aerosol inhaler cholecalciferol (vitamin D3) 25 25 mcg PO DAILY 07/23/21 09/29/23 mcg (1,000 unit) capsule (Vitamin D3) Previous Rx's Medication Instructions Recorded atorvastatin 20 mg tablet 20 mg PO DAILY #90 tabs 01/07/23 diltiazem HCl 120 mg 120 mg PO DAILY #90 caps 09/21/23 capsule,extended release 24 hr cefuroxime axetil 250 mg tablet 250 mg PO BID 7 days #14 tabs 09/29/23 oseltamivir 30 mg capsule (Tamiflu) 30 mg PO DAILY 4 days #4 caps 09/29/23 Allergies Allergy/AdvReac Type Severity Reaction Status Date / Time clindamycin Allergy Unknown Unknown Verified 10/29/21 14:25 FRUITS WITH PITS Allergy Unknown UNKNOWN Uncoded 10/29/21 14:25 Review of Systems 2 Review of Systems: Yes all other systems are reviewed and are negative FOR[facility]LY [facility] Past Medical History Attestation statement: The following information was validated with the patient. Source: old records reviewed Medical History COVID-19 vaccine series completed Asthma COPD (chronic obstructive pulmonary disease) Bilateral carotid artery disease Hyperlipidemia Supraventricular tachycardia Surgical History History of bladder surgery Hx of cone biopsy of cervix History of esophagogastroduodenoscopy (EGD) H/O colonoscopy History of hip surgery Family History Family History Father No problems noted. Mother No problems noted. Social History Social History Are you a primary urgent care nurse practitioner to a significant other at home: No Do you presently have visiting nurse or other home services: No Alcohol intake: current Alcohol intake frequency: does not drink Alcohol type: wine Patient Tobacco Use Status: Never used Tobacco Smoked in Last 30 Days: No Use of substances other than those prescribed or required for medical reasons: No Advance Directives: No Advance Directives Information Provided: No Physical Exam 2 Vital Signs: Vital Signs: Last Vital Signs Temp 97.1 F 09/29/23 21:44 Pulse 72 09/30/23 10:19 Resp 16 09/30/23 10:19 BP 133/78 09/30/23 10:19 Pulse Ox 97 09/30/23 10:19 O2 Del Method Room Air 09/30/23 10:19 O2 Flow Rate 98 09/29/23 21:44 BMI result Body Mass Index 19.5 Appearance: Alert.?Oriented to person, place and time. No acute distress.?Normal affect. Eyes: Pupils equal, round and reactive to light.? ENT: Pharynx normal.?? Neck: Normal inspection.? Neck supple.?? CVS: Heart sounds normal. Tachycardia. Pulses normal.?? Respiratory: No respiratory distress.? Lung sounds clear to auscultation bilaterally, diminished at the bases?? Abdomen: Soft and non-tender. Normoactive bowel sounds. ? Skin: Skin warm and dry.? Normal skin color.?? Extremities: No lower extremity edema.? No calf ttp? Neuro: Moves all extremities spontaneously. Sensation intact bilaterally. CN II- XII intact. No focal neuro deficits. Ambulates with normal steady gait. Course Course Course Narrative: --1115--physician observation continue. Labs reviewed. Patient noted to have UTI > p.o. Ceftin initiated. Patient also influenza A positive, will initiate Tamiflu and continue home medications. Pending PT/case management 1550--physician observation completed. Patient passed physical therapy will go home with granddaughter at 16:00 with snf and physical therapy from [facility]. 09/30/23--0703--physician observation continued. Granddaughter came to chicken picker patient yesterday for discharge however felt uncomfortable as patient does not have walker at home. Case re-discussed with case management, physical therapy will re-evaluate patient today >>PT rec home services with prescription for front wheeled walker Reevaluation(s) Reevaluation #1: Patient received diltiazem 10 mg IV push with improvement in heart rate down to the 90s, repeat EKG revealing a normal sinus rhythm, suspect that prior EKG was a tachyarrhythmia. She is noted to be influenza A positive which is likely the cause for her increasing shortness of breath and weakness. CBC is without leukocytosis or anemia. Renal blood gases within normal range. CMP unremarkable. High sensitive troponin within normal limits. Time: 20:15 Reevaluation #2: Patient did have significant weakness upon attempting to ambulate and was feeling short of breath, O2 saturation 92% room air, noted to them become tachycardic again to 130s, and maintaining despite rest. At this time will trial an additional diltiazem 20 mg IV push, and provide a thiazide on 120 mg orally, when asked she states that she does not believe she took her dose earlier today. Should her heart rate responded well to this and remained stable she will likely require physician observation so that case management physical therapy observation can be obtained due to her profound weakness. For tachycardia versus occlusion may require inpatient admission for management. Time: 22:27 Reevaluation #3: Advised by nursing staff pulse back down to 80-90 without additional diltiazem IV push. Will provide oral diltiazem as previously mentioned and continue to monitor. Time: 23:10 Medications Administered Generic Name Dose Route Start Last Admin Trade Name Stephenq PRN Reason Stop Dose Admin Aspirin 81 mg 09/29/23 11:30 09/30/23 10:17 Aspirin Enteric Coated 81 Mg Tablet.Dr PO 81 mg DAILY STEPH Administration Atorvastatin Calcium 20 mg 09/29/23 11:30 09/30/23 10:17 Atorvastatin Calcium 20 Mg Tablet PO 20 mg DAILY STEPH Administration Cefuroxime Axetil 250 mg 09/29/23 11:30 09/29/23 23:54 Cefuroxime Axetil 250 Mg Tablet PO 10/06/23 11:29 250 mg Q12H STEPH Administration Diltiazem HCl 120 mg 09/29/23 11:30 09/30/23 10:17 Diltiazem Hcl Cd 120 Mg Cap.Er.Deg PO 120 mg DAILY STEPH Administration Protocol Fluticasone Propionate 2 puff 09/29/23 20:00 09/30/23 08:30 Fluticasone Propionate 250 Mcg Blst.W.Dev INHALE Not Given RBID STEPH Oseltamivir Phosphate 30 mg 09/29/23 21:00 09/29/23 21:26 Oseltamivir Phosphate 30 Mg Capsule PO 10/04/23 09:00 30 mg BID STEPH Administration Vitamin D 25 mcg 09/29/23 11:30 09/30/23 10:17 Cholecalciferol (Vitamin D3) 25 Mcg Tablet PO 25 mcg DAILY STEPH Administration Discontinued Medications Generic Name Dose Route Start Last Admin Trade Name Stephenq PRN Reason Stop Dose Admin Diltiazem HCl 10 mg 09/28/23 19:12 09/28/23 19:33 Diltiazem Hcl 50 Mg/10 Ml Vial IVPUSH 09/28/23 19:13 10 mg STAT STA Administration Diltiazem HCl 120 mg 09/28/23 22:26 09/28/23 23:35 Diltiazem Hcl Sr 60 Mg Cap.Er.12h PO 09/28/23 22:27 120 mg ONCE ONE Administration Protocol Diltiazem HCl 20 mg 09/28/23 22:26 09/28/23 23:31 Diltiazem Hcl 50 Mg/10 Ml Vial IVPUSH 09/28/23 22:27 Not Given STAT STA Oseltamivir Phosphate 75 mg 09/29/23 11:30 09/29/23 11:51 Oseltamivir Phosphate 75 Mg Capsule PO 09/29/23 11:31 75 mg ONCE ONE Administration Medical Decision Making Medical Decision Making MDM Narrative: Patient is an 88-year-old female with past medical history of SVT on diltiazem followed by Dr. Sosa, bilateral carotid artery disease, hyperlipidemia presenting to emergency department for evaluation of weakness and shortness of breath as per HPI. At the time my examination she appears overall well. She was noted to be tachycardic with heart rate in the 140s, without tachypnea or hypoxia, and she is afebrile. Normotensive. Lung sounds are clear bilaterally, though slightly diminished in the bases. Initial EKG was obtained, with interpretation of SVT and right bundle-branch block, however ventricular rate is 133. It does appear to be irregular rhythm, though based on the rate will treat with diltiazem IV push and re-evaluate the rhythm once it slows. I reviewed this case with ED attending Dr. Cespedes, who agrees with this plan of care. Will obtain CBC to evaluate for leukocytosis/ anemia, CMP and lipase to evaluate for abnormal electrolytes /abnormal renal function/ abnormal hepatic/biliary function, troponin to evaluate for ischemia/ACS. Chest x-ray to evaluate for consolidation/ infiltrate/ mass/ pulmonary congestion and Urinalysis. Differential Diagnosis Differential Diagnoses: The differential diagnosis associated with the presentation includes (SVT, atrial fibrillation, atrial flutter, COPD exacerbation) Admission/Observation Consideration of admission/observation: Escalation of care including admission/observation considered (See narrative above and course narrative for further detail) Lab Data [facility] Lab Attestation statement: I reviewed the patient's lab results. (See course narrative for further detail) 09/28/23 19:22 09/28/23 19:22 Labs: Lab Results 09/28/23 09/28/23 09/28/23 Range/Units 19:22 19:27 21:50 WBC 6.7 (4.8-10.8) X10*3/uL RBC 4.92 (4.20-5.50) X10*6/uL Hgb 15.5 (12.0-16.0) g/dl Hct 46.3 (37.0-47.0) % MCV 94.1 (80.0-98.0) fL MCH 31.5 (27.0-33.0) pg MCHC 33.5 (31.0-35.0) g/dl RDW 13.8 (11.0-16.0) % Plt Count 181 (160-400) X10*3/uL MPV 9.6 (9.4-12.3) fL Immature Gran % (Auto) 0.3 (0.0-0.4) % Neut % (Auto) 80.0 H (45-73) % Lymph % (Auto) 11.3 L (20-40) % Thurston % (Auto) 7.3 (2-11) % Eos % (Auto) 0.7 (0-4) % Baso % (Auto) 0.4 (0-2) % Lymph # (Auto) 0.8 L (1.2-4.9) X10*3/uL Thurston # (Auto) 0.5 (0.1-1.2) X10*3/uL Eos # (Auto) 0.1 (0.0-0.4) X10*3/uL Baso # (Auto) 0.0 (0.0-0.2) X10*3/uL Abs Immat Gran (auto) 0.02 (0.00-0.03) X10*3/uL Absolute Neuts (auto) 5.4 (2.0-8.3) x10*3/uL Absolute Nucleated RBC 0.000 (0.0-0.012) X10*3/uL Nucleated RBC % (auto) 0.0 (0.0-0.2) /100WBC PT 10.9 L (11.1-13.3) SEC INR 0.9 (0.9-1.1) VBG pH 7.43 (7.32-7.43) VBG pCO2 34 mmHg VBG pO2 48 mmHg VBG HCO3 23 (22-26) mmol/L VBG O2 Saturation 83.0 % VBG Base Excess -0.3 mmol/L Sodium 136 (135-145) mmol/L Potassium 3.8 (3.3-5.1) mmol/L Chloride 106 (96-108) mmol/L Carbon Dioxide 23 (22-29) mmol/L Anion Gap 11 L (12-20) BUN 9 (9-16) mg/dL Creatinine 0.83 (0.5-1.4) mg/dL Estim Creat Clear Calc 34.8 Estimated GFR > 60 Random Glucose 141 H (60-115) mg/dL Lactic Acid 1.6 (0.5-2.0) mmol/L Calcium 10.2 (8.4-10.2) mg/dL Magnesium 1.9 (1.6-2.6) mg/dL Total Bilirubin 0.5 (0.0-1.0) mg/dL AST 21 (5-31) U/L ALT 12 (0-31) U/L Alkaline Phosphatase 110 (39-117) U/L Troponin I High Sens 4.6 (<3.5-17.0) ng/L Total Protein 7.4 (6.5-8.0) g/dL Albumin 4.3 (3.5-5.0) g/dL Lipase 18 (8-78) U/L Urine Color Yellow Urine Appearance Clear Urine pH 6.0 (5.0-9.0) Ur Specific [place] >= 1.030 H (1.005-1.025) Urine Protein Trace (Neg-Trace) mg/dL Urine Glucose (UA) 250 H (Negative) mg/dL Urine Ketones Trace (Negative) mg/dL Urine Blood Small (1+) H (Negative) Urine Nitrite Negative (Negative) Ur Leukocyte Esterase Small (1+) H (Negative) Urine RBC 3-5 H (0-2) /HPF Urine WBC 21-50 H (0-5) /HPF Ur Squamous Epith Cells 3-5 (0-2) /HPF Urine Bacteria None Seen (None Seen) Hyaline Casts 0-2 (0-2) /LPF COVID-19 (LKUAS) Negative (Negative) COVID-19 Clin Com See Note Influenza Type A (CESAR) Positive A (Negative) Influenza Type B (CESAR) Negative (Negative) Influenza A & B Note See Note Independent Interpretation I performed an independent interpretation of an: EKG (See course narrative for further detail) and Plain X-Ray (I personally interpreted chest x-ray and agree with radiologist impression.) Radiology Impression Discussion of test interpretation with radiology: I have reviewed the radiologist's reading. Independent Historian Clinical information obtained from an independent historian. History obtained from or confirmed by: EMS External Record Review External record reviewed: Outpatient record Discharge Plan Discharge Clinical Impression: Influenza A, Tachyarrhythmia, Acute UTI Patient Disposition: Home, Self-Care Instructions: Influenza (DC), Urinary Tract Infection in Older Adults (ED) Additional Instructions: You have the flu. Tamiflu is an antiviral medication please take as prescribed In addition you have a UTI. Soft in is and antibiotic please take as prescribed Continue all home prescribed medications Your contagious, wash her hands, cover your mouth. If symptoms persist or worsen return to the emergency department Prescriptions: New cefuroxime axetil 250 mg tablet 250 mg PO BID 7 Days Qty: 14 0RF oseltamivir [Tamiflu] 30 mg capsule 30 mg PO DAILY 4 Days Qty: 4 0RF No Action atorvastatin 20 mg tablet 20 mg PO DAILY Qty: 90 3RF diltiazem HCl 120 mg capsule,extended release 24hr 120 mg PO DAILY Qty: 90 3RF cholecalciferol (vitamin D3) [Vitamin D3] 25 mcg (1,000 unit) Capsule 25 mcg PO DAILY aspirin [Adult Low Dose Aspirin] 81 mg tablet,delayed release (DR/EC) 81 mg PO DAILY Flovent HFA 220 mcg/actuation HFA aerosol inhaler 2 puff inhalation BID ProAir RespiClick 90 mcg/actuation aerosol powdr breath activated 2 inh inhalation Q4-6H PRN (Reason: Wheezing) Referrals: [facility] [Outside] Ramos Ruiz MD [Primary Care Provider] - 3 days
[2023-09-28 19:41] LABS: Venous Blood Gas Refer to POC result
[2023-09-28 19:42] LABS: INTERNATIONAL NORM RATIO 0.9 (0.9-1.1); Lactic Acid 1.6 mmol/L (0.5-2.0); Prothrombin Time 10.9 SEC (11.1-13.3)
[2023-09-28 19:45] LABS: Alanine Aminotransferase 12 U/L (0-31); Albumin Level 4.3 g/dL (3.5-5.0); Alkaline Phosphatase 110 U/L (39-117); Anion Gap 11 (12-20); Aspartate Amino Transferase 21 U/L (5-31); Bilirubin Total 0.5 mg/dL (0.0-1.0); Blood Urea Nitrogen 9 mg/dL (9-16); Calcium 10.2 mg/dL (8.4-10.2); Carbon Dioxide 23 mmol/L (22-29); Chloride 106 mmol/L (96-108); Creatinine Clr Calc Pharmacy 34.8; Estimated Glomerular Filt Rate > 60; Glucose Random 141 mg/dL (60-115); Lipase 18 U/L (8-78); Magnesium 1.9 mg/dL (1.6-2.6); Potassium 3.8 mmol/L (3.3-5.1); Sodium 136 mmol/L (135-145); Total Protein 7.4 g/dL (6.5-8.0)
[2023-09-28 19:47] LABS: COVID-19 Test Negative (Negative); IDNOW Serial# 08D9AD1C; IDNOW Serial# BCCEAD1C; Influenza A Positive (Negative); Influenza B2 Negative (Negative)
[2023-09-28 19:52] LABS: Troponin-I High Sensitivity 4.6 ng/L (<3.5-17.0)
--- NOTE | 2023-09-28 20:01 | ECG_ITS ---
Test Reason : TACHYCARDIA Blood Pressure : / mmHG Vent. Rate : 099 BPM Atrial Rate : 099 BPM P-R Int : 142 ms QRS Dur : 110 ms QT Int : 336 ms P-R-T Axes : 071 088 -08 degrees QTc Int : 431 ms Normal sinus rhythm Incomplete right bundle branch block ST & T wave abnormality, consider inferior ischemia Abnormal ECG When compared with ECG of 28-SEP-2023 19:06, ST no longer depressed in Inferior leads ST no longer depressed in Anterior leads Referred By: Vijaya Galdamez Electronically Signed By:NAOMI ALVARADO
[2023-09-28 20:02] VITALS: BP 127/83; PULSE 127; RESP 20; TEMP 37.4; O2SAT 94
[2023-09-28 21:44] VITALS: BP 117/76; PULSE 143; RESP 24; TEMP 36.9; O2SAT 96
--- NOTE | 2023-09-28 21:47 | MHC.EDTECH ---
Assisted pt oob to commode and back to bed. Pt very unsteady on feet. Urine sample sent. RN aware
[2023-09-28 21:58] LABS: Appearance Urine Clear; Color Urine Yellow; Glucose Urine UA 250 mg/dL (Negative); Leukocyte Esterase Urine Small (1+) (Negative); Nitrite Urine Negative (Negative); Specific Gravity - Urine >= 1.030 (1.005-1.025); UMIC TRIGGER UACC YES; Urine Blood Small (1+) (Negative); Urine Ketones Trace mg/dL (Negative); Urine Protein Trace mg/dL (Neg-Trace)
[2023-09-28 22:09] LABS: Bacteria Urine None Seen (None Seen); Hyaline Casts Urine 0-2 /LPF (0-2); UACC Culture Trigger YES; WBC Urine 21-50 /HPF (0-5)
--- NOTE | 2023-09-28 22:49 | PC.NURSE ---
Called pharmacy regarding Dilt 120mg PO not in pyxis. Pharmacy will bring it down.
[2023-09-28 22:55] VITALS: BP 139/79; PULSE 88; RESP 24; TEMP 37.3; O2SAT 95
[2023-09-28] MEDS: dilTIAZem HCL SR 60 MG CAP.ER.12H 120 MG PO (23:35)
[2023-09-29] VITALS (7 sets, daily range): BP systolic 90–157; BP diastolic 63–81; PULSE 63–89; RESP 14–28; TEMP 36.2–37.3; O2SAT 94–98
--- NOTE | 2023-09-29 06:16 | PC.NURSE ---
Med req completed.
--- NOTE | 2023-09-29 08:47 | PC.NURSE ---
spoke with pts Son, Jase. pt aware pt currently with no complaints. up to bedside commode with 1x assist. pt had BM. currently awaiting PT for CM referral. pt has no pain, made aware that she is flu + - she had no recollection from yesterday. pt A&O, calm, pleasant.
--- NOTE | 2023-09-29 11:23 | PHA.MEDREC ---
Pharmacy Consult ? Medication Reconciliation Pharmacy has REVIEWED the medication reconciliation.
[2023-09-29] MEDS: dilTIAZem HCL CD 120 MG CAP.ER.DEG PO (11:50)
[2023-09-29] MEDS: Oseltamivir Phosphate 75 MG CAPSULE PO (11:51)
[2023-09-29] MEDS: cefuroxime axetiL 250 MG TABLET PO ×2 (11:51→23:54)
[2023-09-29] MEDS: Cholecalciferol (Vitamin D3) 25 MCG TABLET PO (11:51)
[2023-09-29] MEDS: Atorvastatin Calcium 20 MG TABLET PO (11:51)
--- NOTE | 2023-09-29 12:00 | PC.NURSE ---
medicated pt per MAR, she reports she does not take Aspirin. documented against this med, informed Cathy RODRÍGUEZ of pts statement. pt was seen by PT. pt remains weak. she is forgetful. required re-education regarding her medications several times during administration.
--- NOTE | 2023-09-29 13:42 | MHC.CM.ED ---
Addendum entered by Eunice Dickerson 09/29/23 15:26: [facility] is able to accept patient. Patient agreeable to [facility]. Received telephone call from Le. Le will be here around 4pm to transport patient home. Original Note: Received case management consult overnight. Patient came to the ER due to difficulty ambulating. Found to be Flu A positive. Physical therapy eval completed. Home services are recommended. Met with patient in regards to discharge planning. Patient lives with her granddaughter, Le, ambulates independently and had no services prior to coming to the hospital PCP is Dr Ruiz. Patient received 6 Pfizer vaccines. Copy of HCP obtained from [facility]. Patient feels she can safely go home. Patient's son or granddaughter will transport her home. T/W spoke with patient's son, Jase. Patient doesn't have her keys with her. Jase will not be able to get patient into her apartment wihtout her keys. Le gets out of work at 4pm. Attempted to speak to Le via telephone at [phone]. Left message requesting return telephone call. Patient has [employer] for insurance. [facility] is not contracted with many VNA agencies. Patient agreeable to referral being broadcasted in [employer]. Referral made via [facility]. Continue to monitor for d/c needs.
--- NOTE | 2023-09-29 16:36 | PC.NURSE ---
pt reynaalex here to collect pt. per kate - pt does not have a walker at home. pt was unable to get up with PT without walker. plan for pt to stay one more night per Cathy RODRÍGUEZ
--- NOTE | 2023-09-29 19:08 | MHC.EDTECH ---
pt assisted to the comode
[2023-09-29] MEDS: Oseltamivir Phosphate 30 MG CAPSULE PO (21:26)
[2023-09-30 06:13] VITALS: BP 153/70; PULSE 52; RESP 14; O2SAT 99
--- NOTE | 2023-09-30 07:44 | PC.NURSE ---
assumed care of pt at 0700. pt a&o, calm, and cooperative. pt resting quietly on stretcher in no apparent distress. rr even/unlabored. call brothers within reach. plan of care ongoing.
[2023-09-30 09:30] VITALS: BP 153/70; PULSE 52; O2SAT 99
[2023-09-30] MEDS: dilTIAZem HCL CD 120 MG CAP.ER.DEG PO (10:17)
[2023-09-30] MEDS: Cholecalciferol (Vitamin D3) 25 MCG TABLET PO (10:17)
[2023-09-30] MEDS: Aspirin Enteric Coated 81 MG TABLET.DR PO (10:17)
[2023-09-30] MEDS: Atorvastatin Calcium 20 MG TABLET PO (10:17)
[2023-09-30 10:19] VITALS: BP 133/78; PULSE 72; RESP 16; O2SAT 97
--- NOTE | 2023-09-30 10:25 | PC.NURSE ---
called pharmacy for tamiflu for pt.
[2023-09-30] MEDS: Oseltamivir Phosphate 30 MG CAPSULE PO (10:37)
[2023-09-30 12:54] VITALS: BP 155/81; PULSE 60; RESP 16; TEMP 36.4; O2SAT 97
[2023-09-30] MEDS: cefuroxime axetiL 250 MG TABLET PO (13:36)
--- NOTE | 2023-09-30 14:29 | PC.NURSE ---
pt ambulated to bathroom using walker and standby assist via tech. pt steady on feet. pt now back to bed. call brothers within reach.
--- NOTE | 2023-09-30 14:45 | MHC.CM.ED ---
Patient remains in ER. Physical therapy re-evaluated patient. Still recommending home services with front wheeled walker. Printed RX provided by Cathy R[facility]UE[facility]. Spoke with patient's granddaughter, Le via telephone at [phone]. Le gets out of work at 4pm. She will come to the ER to get the [facility] RX, get the walker and then return to ER to transport patient home. Cathy and Rica ALVAREZ aware. Continue to monitor for d/c needs.
--- NOTE | 2023-09-30 14:48 | PC.NURSE ---
report given to Tara pt to ED overflow.
--- NOTE | 2023-09-30 14:50 | PC.NURSE ---
RN TO RN REPORT RECEIVED FROM LYNDON Joseph PT TRANSPORT FROM MAIN ED TO OVERFLOW UNIT BED 1. BED ALARM ON.
[2023-09-30 16:00] VITALS: BP 162/90; PULSE 71; RESP 16; TEMP 36.7; O2SAT 97
== END 2023-09-30 18:13 | disposition home or self-care (01) ==
PROVIDERS: Nurse Practitioner Family; Emergency Provider Student in an Organized Health Care Education/Training Program; PCP Internal Medicine
DX: J10.1 Influenza due to other identified influenza virus with other respiratory manifestations (principal); R00.0 Tachycardia, unspecified; N39.0 Urinary tract infection, site not specified; R26.81 Unsteadiness on feet; Z11.52 Encounter for screening for COVID-19; Z20.822 Contact with and (suspected) exposure to COVID-19; Z79.899 Other long term (current) drug therapy
CPT/HCPCS: 71045; 80053; 81001; 81003; 82803; 83605; 83690; 83735; 84484; 85025; 85610; 87040; 87086; 87502; 87635; 93005; 96374; 97116; 97161; 99285

== ENCOUNTER → 2023-09-28 19:04 | Outpatient (BNV) | payer MEDICARE, SELFPAY | PROVIDERS: Emergency Provider Student in an Organized Health Care Education/Training Program; PCP Internal Medicine; Visit Provider Internal Medicine | DX: I47.10 Supraventricular tachycardia, unspecified (principal); R94.31 Abnormal electrocardiogram [ECG] [EKG] | CPT/HCPCS: 93010 ==

== ENCOUNTER 2024-03-07 11:07 | Outpatient (REF) | payer MEDICARE, SELFPAY ==
[2024-03-07 11:42] LABS: Alanine Aminotransferase 14 U/L (0-31); Albumin Level 4.6 g/dL (3.5-5.0); Alkaline Phosphatase 104 U/L (39-117); Aspartate Amino Transferase 25 U/L (5-31); Bilirubin Direct 0.4 mg/dL (0.0-0.5); Bilirubin Total 1.1 mg/dL (0.0-1.0); Cholesterol 159 mg/dL (<200); HDL Cholesterol 88 mg/dL (>40); LDL Cholesterol Calculated 54 mg/dL (<100); Total Protein 7.8 g/dL (6.5-8.0); Triglycerides 87 mg/dL (<150)
[2024-03-07 11:53] LABS: Reflex LDLD? No
== END 2024-03-07 11:08 | disposition home or self-care (01) ==
LOC: HO.LNP 11:07
PROVIDERS: Visit Provider Internal Medicine
DX: E78.00 Pure hypercholesterolemia, unspecified (principal)
CPT/HCPCS: 80061; 80076

== ENCOUNTER 2024-10-28 10:41 | Outpatient (REF) | payer MEDICARE, SELFPAY ==
[2024-10-28 10:44] LABS: MANUAL DIFF FLAG NO
[2024-10-28 11:25] LABS: Basophils Absolute Auto 0.1 X10*3/uL (0.0-0.2); Basophils Percent Auto 0.9 % (0-2); Eosinophils Absolute Auto 0.2 X10*3/uL (0.0-0.4); Eosinophils Percent Auto 3.1 % (0-4); Hematocrit 46.4 % (37.0-47.0); Imm Gran Abs Auto 0.01 X10*3/uL (0.00-0.03); Imm Gran Pct Auto 0.1 % (0.0-0.4); Lymphocytes Absolute Auto 2.8 X10*3/uL (1.2-4.9); Lymphocytes Percent Auto 39.2 % (20-40); Mean Corpuscular HGB Conc 32.3 g/dl (31.0-35.0); Mean Corpuscular Hemoglobin 31.4 pg (27.0-33.0); Mean Corpuscular Volume 97.3 fL (80.0-98.0); Mean Platelet Volume 10.5 fL (9.4-12.3); Monocytes Absolute Auto 0.4 X10*3/uL (0.1-1.2); Monocytes Percent Auto 5.7 % (2-11); Neutrophils Absolute Auto 3.6 x10*3/uL (2.0-8.3); Platelet Count 240 X10*3/uL (160-400); Red Blood Count 4.77 X10*6/uL (4.20-5.50); Red Cell Distribution Width 14.4 % (11.0-16.0)
[2024-10-28 11:32] LABS: Appearance Urine Hazy; Color Urine Yellow; Glucose Urine UA Negative (Negative); Leukocyte Esterase Urine Trace (Negative); Nitrite Urine Negative (Negative); PH 7.5 (5.0-9.0); UMIC TRIGGER UACC YES; Urine Blood Negative (Negative); Urine Ketones Negative (Negative); Urine Protein 30 (1+) mg/dL (Neg-Trace)
[2024-10-28 11:55] LABS: RBC Urine 0-2 /HPF (0-2); Squamous Epithelial Cell Urine 0-2 /HPF (0-2); WBC Urine 0-5 /HPF (0-5)
[2024-10-28 11:56] LABS: Alanine Aminotransferase 8 U/L (0-31); Albumin Level 4.2 g/dL (3.5-5.0); Alkaline Phosphatase 98 U/L (39-117); Anion Gap 11 (12-20); Aspartate Amino Transferase 28 U/L (5-31); Bacteria Urine 3+ (None Seen); Bilirubin Total 0.8 mg/dL (0.0-1.0); Blood Urea Nitrogen 12 mg/dL (9-16); Calcium 9.8 mg/dL (8.4-10.2); Carbon Dioxide 27 mmol/L (22-29); Chloride 105 mmol/L (96-108); Cholesterol 222 mg/dL (<200); Estimated Glomerular Filt Rate > 60; Glucose Fasting 115 mg/dL (60-99); Granular Casts Urine Present; HDL Cholesterol 78 mg/dL (>40); Hyaline Casts Urine 0-2 /LPF (0-2); LDL Cholesterol Calculated 114 mg/dL (<100); Other Crystals Urine Present; Sodium 139 mmol/L (135-145); Total Protein 7.4 g/dL (6.5-8.0); Triglycerides 154 mg/dL (<150)
== END 2024-10-28 10:42 | disposition home or self-care (01) ==
LOC: HO.LNP 10:41
PROVIDERS: Visit Provider Internal Medicine
DX: Z00.00 Encounter for general adult medical examination without abnormal findings (principal); E78.00 Pure hypercholesterolemia, unspecified
CPT/HCPCS: 80053; 80061; 81001; 85025

== ENCOUNTER 2025-05-08 11:10 | Outpatient (REF) | payer MEDICARE, SELFPAY ==
[2025-05-08 11:55] LABS: Alanine Aminotransferase 16 U/L (0-31); Albumin Level 4.6 g/dL (3.5-5.0); Alkaline Phosphatase 92 U/L (39-117); Aspartate Amino Transferase 30 U/L (5-31); Cholesterol 172 mg/dL (<200); HDL Cholesterol 87 mg/dL (>40); Total Protein 7.4 g/dL (6.5-8.0); Triglycerides 85 mg/dL (<150)
--- OUTSIDE RECORDS SUMMARY | 2025-05-08 12:16 | XMS_ITS | Patient Health Record ---
Author Organization [facility] Address [address] [place] [address] Care Team Providers Care Millwright Supervisor Name Role Phone Ramos Ruiz MD Primary Care Provider Simon Alex [phone] Allergies Allergen (clinical drug ingredient) Drug/Non Drug Allergy documented on EMR Reaction Allergy Type Onset Date Status clindamycin Clindamycin HCl Unknown Drug Allergy Active Reason For Referral No Information Medications Medication SIG (Take, Route, Frequency, Duration) Notes Start Date End Date Status Zantac 75 once a day Active Amoxicillin 500 MG before dental proced ure Orally Active Probiotic 1 week before dental procedure and after Active Metoprolol Tartrate 25 MG 1 tablet with food Orally once a day Active Aspir-81 81 MG 1 tablet Orally Once a day Active Lipitor 20 MG 1 tablet Orally Once a day Active Problems Problem Type SNOMED Code ICD Code Onset Dates Problem Status W/U Status Risk Notes Problem 374718123 Gastroesophageal reflux disease, esophagitis presence not specified (K21.9) Active confirmed Problem 87612094 Hoarseness (R49.0) Active confirmed Plan Of Treatment Future Test Test Name Order Date UPPER GI ENDOSCOPY 08/01/2016 Insurance Providers Payer Name Payer Address Payer Phone Subscriber Number Group Number Insured Name Patient Relationship to Insured Coverage Start Date Coverage End Date [facility] [address] [place] [phone] [id number] MICKI GRAY Self - patient is the insured Medical (General) History Medical History History ICD Code Colonoscopy in 11/2005 neg ex cept for a hyperplastic polyp, diverticulosis, internal hemorrhoids Hyperlipidemia Hospitalized in 10/2013 for p resumed C.diff colitis, although stools were negative--she had been on Clindamycin and Amoxicillen for dental work-CT scan showed colitis Denies [place],DM,CVA,Lung disease,renal dise ase heart palpitiation-on metoprolol for sym ptoms Surgical History Surgery Date(Month/Year) Left hip replacement 2003 removal of a benign tumor near parotid g land cervical cone biopsies benign breast biopsy Right hip replacement in 08/2013 Bladder suspension
--- OUTSIDE RECORDS SUMMARY | 2025-05-08 12:16 | XMS_ITS | Patient Health Record ---
Author Organization Ramos Ruiz MD Address [address] [place] [id number] Care Team Providers Care Direct Care Supervisor Name Role Phone Ramos Ruiz Primary Care Provider Allergies Allergen (clinical drug ingredient) Drug/Non Drug Allergy documented on EMR Reaction Allergy Type Onset Date Status clindamycin Clindamycin Unknown Drug Allergy Act aisha Results Component Value Reference Range Notes Complete Blood Count Auto Di ff Reviewed date:10/28/2024 12:45:12 PM Interpretation: Performing Lab:[facility], [address] [place] [phone] Notes/Report: White Blood Count 7.0 4.8-10.8 X10*3/uL Red Blood Count 4.77 4.20-5.50 X10*6/uL Hemoglobin 15.0 12.0-16.0 g/dl Hematocrit 46.4 37.0-47.0 % Mean Corpuscular Volume 97.3 80.0-98.0 fL Mean Corpuscular Hemoglobin 31.4 27.0-33.0 pg Mean Corpuscular HGB Conc 32.3 31.0-35.0 g/dl Red Cell Distribution Width 14.4 11.0-16.0 % Platelet Count 240 160-400 X10*3/uL Mean Platelet Volume 10.5 9.4-12.3 fL Neutrophils Percent Auto 51.0 45-73 % Imm Gran Pct Auto 0.1 0.0-0.4 % Lymphocytes Percent Auto 39.2 20-40 % Monocytes Percent Auto 5.7 2-11 % Eosinophils Percent Auto 3.1 0-4 % Basophils Percent Auto 0.9 0-2 % NRBC Pct Auto 0.0 0.0-0.2 /100WBC Neutrophils Absolute Auto 3.6 2.0-8.3 x10*3/u L Imm Gran Abs Auto 0.01 0.00-0.03 X10*3/uL Lymphocytes Absolute Auto 2.8 1.2-4.9 X10*3/u L Monocytes Absolute Auto 0.4 0.1-1.2 X10*3/uL Eosinophils Absolute Auto 0.2 0.0-0.4 X10*3/u L Basophils Absolute Auto 0.1 0.0-0.2 X10*3/uL NRBC Abs Auto 0.000 0.0-0.012 X10*3/uL Comprehensive [place]. Panel Fa st Reviewed date:10/28/2024 12:20:53 PM Interpretation: Performing Lab:[facility], [address] [place] [phone] Notes/Report: Sodium 139 135-145 mmol/L Potassium 4.0 3.3-5.1 mmol/L Chloride 105 96-108 mmol/L Carbon Dioxide 27 22-29 mmol/L Anion Gap 11 12-20 Blood Urea Nitrogen 12 9-16 mg/dL Creatinine 0.80 0.5-1.4 mg/dL Estimated Glomerular Filt Rate > 60 Chronic Kidney Disease: Estimated GFR < 60 mL/min/1.73m2 Severe Kidney Disease: Estimated GFR < 15 mL/min/1.73m2 Glucose Fasting 115 60-99 mg/dL A fasting glucose from 100-125 mg/dl is considered impaired (pre-diabetes). Calcium 9.8 8.4-10.2 mg/dL Bilirubin Total 0.8 0.0-1.0 mg/dL Aspartate Amino Transferase 28 5-31 U/L Alanine Aminotransferase 8 0-31 U/L Total Protein 7.4 6.5-8.0 g/dL Albumin Level 4.2 3.5-5.0 g/dL Alkaline Phosphatase 98 39-117 U/L Lipid Panel Reviewed date:10/28/2024 12:20:32 PM Interpretation: Performing Lab:[facility], [address] [place] [phone] Notes/Report: Triglycerides 154 <150 mg/dL Desirable Triglyceride: less than 150 mg/dL Borderline High Triglyceride 150-199 mg/dL High Triglyceride: 200-499 mg/dL Very High Triglyceride: greater than or equal to 5OO mg/dL Cholesterol 222 <200 mg/dL Desirable Cholesterol: less than 200 mg/dL Borderline High Cholesterol: 200-239 mg/dL High Cholesterol: greater than 239 mg/dL LDL Cholesterol Calculated 114 <100 mg/dL Desirable LDL: less than 100 mg/dL Near Optimal/Above Optimal LDL: 110-129 mg/dL Borderline High LDL: 130-159 mg/dL High LDL: 160-189 mg/dL Very High LDL: greater than or equal to 190 mg/dL HDL Cholesterol 78 >40 mg/dL Desirable HDL: greater than 40 mg/dL Note: This HDL assay may give artificially low results in patients with liver disease. UA ClnCatch+Micro w/rflx Cul t Reviewed date:10/28/2024 02:59:47 PM Interpretation: Performing Lab:[facility], [address] [place] [phone] Notes/Report: Urine, Clean Catch Color Urine Yellow Appearance Urine Hazy PH 7.5 5.0-9.0 Glucose Urine UA Negative Negative mg/dL Urine Blood Negative Negative Specific [place] - Urine 1.020 1.005-1.025 Urine Protein 30 (1+) Neg-Trace mg/dL Urine Ketones Negative Negative mg/dL Nitrite Urine Negative Negative Leukocyte Esterase Urine Trace Negative RBC Urine 0-2 0-2 /HPF WBC Urine 0-5 0-5 /HPF Squamous Epithelial Cell Urine 0-2 0-2 /HPF Other Crystals Urine Present Bacteria Urine 3+ None Seen Hyaline Casts Urine 0-2 0-2 /LPF Granular Casts Urine Present Hold Gold (Not yet reviewed by provider) Interpretation: Performing Lab:[facility], [address] [place] [address], [place] [phone] Notes/Report: Hold Gold See Note Specimen held untested for 24 hours; Call to request Chemistry testing. Reason For Referral No Information Medications Medication SIG (Take, Route, Frequency, Duration) Notes Start Date End Date Status ProAir RespiClick 108 (90 Base) MCG/ACT INHALE 2 PUFFS BY MOUTH EVERY 4 TO 6 HOURS NEEDED for 16 Active Atorvastatin Calcium 20 MG 1 tablet Orally Once a day for 90 days Active Cartia XT 120 MG 1 capsule Orally Onc e a day for 90 days Active Flovent HFA 220 MCG/ACT 1 puff Inhalatio n Twice a day Not-Taking Vitamin D (Cholecalciferol) 1000 UNIT 1 tablet Orally Once a day 05/10/2015 Not-Taking Cephalexin 500 MG 1 capsule Orally 2 times a day for 5 day(s) 09/10/2023 Not-Taking Immunizations Vaccine Route Administration Date Status Comme nts Flu Vaccine Unknown 08/14/2012 Administered [facility] PPSV23 (Pnemovax) Unknown 03/14/2008 Administered Prevnar 13 IM Intramuscular 04/11/2013 Administered Flu Vaccine IM Intramuscular 10/01/2013 Administered [facility] TDaP Unknown 04/10/2014 Administered Flu Vaccine IM Intramuscular 07/14/2014 Administered [facility] Flu Vaccine IM Intramuscular 07/26/2015 Administered pt lama d the vaccine at [facility]. PPSV23 (Pnemovax) IM Intramuscular 09/06/2015 Administered Flu Vaccine IM Intramuscular 08/01/2016 [facility] 07/16/2017 Administered pt wa s given the high dose vaccine at [facility] Shingles Unknown 03/26/2008 Administered pt recieved it while living in [place]. Fluarix Quadrivalent Unknown 08/02/2018 Administered [facility] Fluarix Quadrivalent IM Intramuscular 07/19/2019 Administered pt was given th e vaccine at [facility] in [place]. Influenza High Dose Unknown 07/19/2020 Administered [facility] PPSV23 (Pnemovax) IM Intramuscular 09/07/2020 Administered Covid Vaccine Unknown 12/09/2020 Administered Pfizer Covid Vaccine Unknown 12/30/2020 Administered Pfizer Influenza High Dose Unknown 07/08/2021 Administered [facility] SARS-COV-2 Pfizer Unknown 09/10/2021 Administered Influenza High Dose Unknown 07/23/2022 Administered Fluarix Quadrivalent Unknown 08/11/2023 Administered [facility] Social History Tobacco Use: Social History Observation Description Date Details (start date - stop date) Never Smoker NA - NA Tobacco Use/Smoking Question Answer Notes Patient is a nonsmoker Additional Findings: Tobacco Non-User Cu rrent non-smoker, currently using no form of tobacco Alcohol Screen Question Answer Notes Did you have a drink contain ing alcohol in the past year? Yes How often did you have a dri nk containing alcohol in the past year? Monthly or less (1 point) How many drinks did you have on a typical day when you were drinking in the past year? 1 or 2 drinks (0 point) How often did you have 6 or more drinks on one occasion in the past year? 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) Active confirmed Problem 727383658 History of abnor mal mammogram (Z87.898) Active confirmed Problem 99675694 Ophthalmic migra ine (G43.109) Active confirmed Problem 48831152 Oropharyngeal dysphagia (R13.12) Active confirmed Problem 742906794 Pulmonary nodule (R91.1) Active confirmed Problem 48735036 Stenosis of minaya tid artery, 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) Active confirmed Problem 879200583 Pure hypercholesterolemia (E78.00) Active confirmed Problem 715469290435718 Moderate persist ent asthmatic bronchitis with acute exacerbation (J45.41) Active confirmed Problem 026429391 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 Problem 06708788501948379 Abnormal CT sc an, chest (R93.89) Active confirmed Vital Signs Blood pressure diastolic 84 mm Hg 11/01/2024 Height 59 in 11/01/2024 Blood pressure systolic 172 mm Hg 11/01/2024 Weight 117 lbs 11/01/2024 BMI 23.63 kg/m2 11/01/2024 Encounters Encounter Location Date Provider Diagnosis Ramos Ruiz MD [address] [place] [address] [address] [place] [id number] 10/28/2024 Ramos Ruiz Blood tests for rout ine general physical examination Z00.00 and Pure hypercholesterolemia E78.00 Ramos Ruiz MD [address] [place] [id number] 05/08/2025 Ramos Ruiz Pure hypercholestero lemia E78.00 Ramos Ruiz MD [address] [place] [id number] 11/01/2024 Ramos Ruiz Supraventricular tachycardia I47.1 ; Annual physical exam Z00.00 ; Pure hypercholesterolemia E78.00 ; Panlobular emphysema J43.1 ; Pulmonary nodule R91.1 and Depression screening Z13.31 Ramos Ruiz MD [address] [place] [address] [id number] 01/19/2025 Ramos Ruiz Assessments Encounter Date Diagnosis (ICD Code) Assessment Notes Treatment Notes Treatment Clinical Notes Section Notes 10/28/2024 [address] tests [address] ine general physical examination (ICD-10 - Z00.00) 10/28/2024 Pure hypercholesterolemia (ICD-10 - E78.00) 05/08/2025 Pure hypercholesterolemia (ICD-10 - E78.00) 11/01/2024 Supraventricular tachycardia (ICD-10 - I47.1) not having any problems, will continue current regiment and will continue to monitor 11/01/2024 Annual physical exam (ICD-10 - Z00.00) labs reviewed and discussed with patient 11/01/2024 Pure hypercholesterolemia (ICD-10 - E78.00) doing well on meds, will conitnue current regiment 11/01/2024 Panlobular emphysema (ICD-10 - J43.1) doing well on inhaler, will continue current regiment 11/01/2024 Pulmonary nodule (IC D-10 - R91.1) order printed and put in future folder , pending diagnostc testing in the future 11/01/2024 Depression screening (ICD-10 - Z13.31) negative screen Plan Of Treatment Pending Test Test Name Order Date Electrocardiogram (EKG) 05/19/2016 CT CHEST NO CONTRAST 03/01/2021 Liver Panel 05/08/2025 Lipid Panel with Reflex 05/08/2025 Hold Gold 05/08/2025 CT chest w con 03/27/2023 CT soft tissue neck w con 09/10/2021 CT soft tissue neck wo/w con 09/03/2021 CT chest wo con 03/10/2022 Future Test Test Name Order Date CT CHEST NO CONTRAST 11/15/2020 CT CHEST NO CONTRAST 11/06/2021 CT chest wo con 04/07/2023 CT chest wo con 01/30/2025 Next Appt Details Provider Name:Ramos Fernandez ier, 05/15/2025 01:15:00 PM, [address] [place] [address], [address], [phone], Provider Name:Ramos Fernandez ier, 11/02/2025 07:00:00 AM, [address] [place] [address], [facility], [place], [place], [phone], Provider Name:Ramos Fernandez ier, 11/09/2025 11:00:00 AM, [address] [place] [address], [place] [address], [place], [place], [phone], Insurance Providers Payer Name Payer Address Payer Phone Subscriber Number Group Number Insured Name Patient Relationship to Insured Coverage Start Date Coverage End Date [employer] [address] [place] [phone] [id number] Julieta Lacey Self - patient is the insured MEDICARE [facility] [address] [place] [address] [id number] Julieta Lacey Self - patient is the insured Medical (General) History Medical History History ICD Code negative stress test 2012 hpv infection in past. had colposcopy. colonoscopy 2006 due in 10 y ears; No colonoscopy needed per Dr. Antonio (see letter from January 2016) c.dificil from clindamicin Upper endoscopy 10/01/[address] Antonio Can't do bone density due to hip replace ment Surgical History Surgery Date(Month/Year) hysterectomy 2009
[2025-05-08 12:35] LABS: Reflex LDLD? No
== END 2025-05-08 11:11 | disposition home or self-care (01) ==
LOC: HO.LNP 11:10
PROVIDERS: Visit Provider Internal Medicine
DX: E78.00 Pure hypercholesterolemia, unspecified (principal)
CPT/HCPCS: 80061; 80076